=== PATIENT | female | born 1940 | race Caucasian/White ===

== ENCOUNTER 2023-01-23 12:24 | Inpatient (IN) ==
[2023-01-23 15:01] VITALS: BMI 17.2
[2023-01-23] MEDS ORDERED: HEPARIN SODIUM INJ 5000 UNITS IVP ONE ×2 (15:20→22:19)
[2023-01-23 15:21] LABS: BASOPHILS # (AUTO) 0.1 X10^3/uL (0.0-0.1); EOSINOPHILS # (AUTO) 0.1 x10^3/uL (0.0-0.2); EOSINOPHILS % (AUTO) 1.1 % (0.9-2.9); HEMATOCRIT 36.8 % (36.0-47.0); HEMOGLOBIN 12.4 g/dL (12.0-16.0); LYMPHOCYTES # (AUTO) 1.7 X10^3/uL (1.3-2.9); LYMPHOCYTES % (AUTO) 24.7 % (21.0-51.0); MEAN CORPUSCULAR HEMOGLOBIN 31.3 pg (27.0-34.0); MEAN CORPUSCULAR HGB CONC 33.6 g/dL (33.0-35.0); MEAN CORPUSCULAR VOLUME 93.2 fL (80.0-100.0); MEAN PLATELET VOLUME 9.3 fL (7.4-11.0); MONOCYTES # (AUTO) 0.7 x10^3/uL (0.3-0.8); MONOCYTES % (AUTO) 11.1 % (0.0-13.0); NEUTROPHILS # (AUTO) 4.2 x10^3/uL (2.2-4.8); NEUTROPHILS % (AUTO) 62.1 % (42.0-75.0); PLATELET COUNT 203 X10^3/uL (150.0-450.0); RED BLOOD COUNT 3.95 X10^6/uL (3.5-5.4); RED CELL DISTRIBUTION WIDTH 13.3 % (11.6-16.5); WHITE BLOOD COUNT 6.7 X10^3/uL (3.6-10.0)
[2023-01-23] MEDS ORDERED: HEPARIN SODIUM INJ 5000 UNITS ONE (15:22)
[2023-01-23 15:30] LABS: ALANINE AMINOTRANSFERASE 9 Units/L (12-78); ALBUMIN 3.4 g/dL (3.4-5.0); ALKALINE PHOSPHATASE 50 Units/L (46-116); ASPARTATE AMINO TRANSFERASE 16 Units/L (15-37); BLOOD UREA NITROGEN 14 mg/dL (7-18); CALCIUM 8.5 mg/dL (8.5-10.1); CARBON DIOXIDE 27.3 mmol/L (21-32); CHLORIDE 103 mmol/L (98-107); CREATININE 0.78 mg/dL (0.55-1.02); GLUCOSE 78 mg/dL (65-99); SODIUM 136 mmol/L (136-145); TOTAL PROTEIN 6.9 g/dL (6.4-8.2); eGFR NON BLACK RACES > 60 (>60)
[2023-01-23] MEDS ORDERED: OMNIPAQUE 350 mg/mL 100 mL BTL 100 ML ONE (15:37)
[2023-01-23] MEDS ORDERED: OMNIPAQUE 350 mg/mL 50 mL BTL 50 ML ONE (15:37)
[2023-01-23] MEDS ORDERED: NS 100 ML IV 100 ML ONE (15:37)
[2023-01-23] MEDS: LR 1,000 ML IV 1,000 ML IV SCH (15:42)
[2023-01-23] MEDS: HEPARIN SODIUM IN D5W 25,000 UNITS/500 ML BAG IV PRN (15:43)
[2023-01-23] MEDS ORDERED: HIBICLENS WASH EXT ONE (20:17)
--- NOTE | 2023-01-23 20:39 | CT ---
EXAM: CTA AORTA, AND BILATERAL LOWER EXTREMITIES WITH INTRAVENOUS CONTRASTHISTORY: Critical ischemia in both legs.TECHNIQUE: Spiral axial CT images are obtained through the distal abdomen, pelvis and bilateral lower extremities with the administration of intravenous contrast. Three-dimensional coronal, sagittal, and oblique images are reformatted.DOSIMETRY: Total DLP 713.31 mGycm; CTDI 24.68 mGyCOMPARISON: None available.FINDINGS:CT ABDOMEN AND PELVIS: The liver, spleen, pancreas, gallbladder, kidneys, adrenal glands, aorta, and IVC are within normal limits. There is no free fluid, free air, herniation, mass lesion, or lymphadenopathy seen. No bony fracture deformities are seen. Abundant fecal material is seen within the large bowel loops; nonspecific finding; rule out constipation. There is no evidence for bowel herniation, bowel obstruction, appendicitis, colitis, or diverticulitis. Mildly thickened and trabeculated appearance of the urinary bladder wall which may represent sequela of incomplete bladder distention and/or neurogenic bladder and/or cystitis in the appropriate clinical setting. Clinical correlation is advised.CTA ABDOMEN AND PELVIS: There is severe aortoiliac atherosclerosis marked by calcified mural plaques throughout, and estimated mild (less than 50%) segmental luminal stenoses throughout. No evidence for aortic aneurysm, dissection, or rupture is seen. There is severe atherosclerotic disease of the celiac axis, SMA, and bilateral renal artery origins, marked by calcified mural plaques. Suggestion of approximately 50 to 69% (potentially hemodynamically significant) luminal stenoses involving the proximal SMA and left renal artery origin. 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 Correlation with MRA may be beneficial for detection of occult patency or blood flow within the distal peripheral right lower extremity arteries.There is severe atherosclerotic disease of the left popliteal artery with segmental calcified mural plaques and luminal narrowings (estimated 50% or less). There is potentially hemodynamically significant luminal stenoses at the left popliteal trifurcation, with arterial perfusion/contrast-enhancement seen throughout the left trifurcation runoff vessels to the ankle and foot.IMPRESSION:1. Severe aortoiliac atherosclerosis marked by calcified mural plaques throughout, and estimated mild (less than 50%) segmental luminal stenoses throughout. No evidence for aortic aneurysm, dissection, or rupture is seen.2. Severe atherosclerotic disease of the celiac axis, SMA, and bilateral renal artery origins, marked by calcified mural plaques.3. Suggestion of approximately 50 to 69% (potentially hemodynamically significant) luminal stenoses involving the proximal SMA and left renal artery origin.4. Severe atherosclerotic disease of the LABOR[employer], PFA, and SFA marked by segmental calcified mural plaques and mild (less than 50%), presumably nonhemodynamically significant, segmental luminal stenoses.5. Complete occlusion/thrombosis of the right popliteal artery, from its origin with absence of detectable blood flow/vascular contrast-enhancement within the severely diseased/calcified, trifurcation runoff vessels. Correlation with MRA may be beneficial for detection of occult patency or blood flow within the distal peripheral right lower extremity arteries.6. Severe atherosclerotic disease of the left popliteal artery with segmental calcified mural plaques and luminal narrowings (estimated 50% or less).7. Potentially hemodynamically significant luminal stenoses at the left popliteal trifurcation, with arterial perfusion/contrast-enhancement seen throughout the left trifurcation runoff vessels to the ankle and foot.8. Abundant fecal material is seen within the large bowel loops; nonspecific finding; rule out constipation.9. Mildly thickened and trabeculated appearance of the urinary bladder wall which may represent sequela of incomplete bladder distention and/or neurogenic bladder and/or cystitis in the appropriate clinical setting. Clinical correlation is advised.THIS IS AN ELECTRONICALLY VERIFIED FINAL [id number]/23/2023 8:36 PM - Electronically signed by Silke Lynn
[2023-01-23] MEDS ORDERED: FLONASE NASAL SPRAY ENOSTRIL PRN (23:01)
[2023-01-23] MEDS ORDERED: NORCO 5/325 MG TAB PO PRN (23:01)
[2023-01-23] MEDS ORDERED: MEGACE PO PRN (23:01)
[2023-01-23] MEDS ORDERED: KENALOG TOP PRN (23:01)
[2023-01-23] MEDS ORDERED: DUONEB 0.5 MG/3 MG (3 mL) NEB PRN ×2 (23:01→23:36)
[2023-01-23] MEDS ORDERED: REFLEX: PROVENTIL NEB & PulmiCORT NEB~ NEB PRN (23:01)
[2023-01-24] MEDS ORDERED: ZESTRIL TAB 20 MG ONE ×2 (00:09→20:28)
[2023-01-24] MEDS: ZESTRIL TAB 20 MG PO SCH ×3 (00:11→20:42)
--- NOTE | 2023-01-24 00:14 | DR.H&P ---
H&P History & Physical for Day of: H&P Date: 01/23/23 Chief Complaint Chief Complaint: Rest pain both legs Allergies Allergies Allergy/AdvReac Type Severity Reaction Status Date / Time ciprofloxacin [From Cipro] Allergy HIVES Verified 07/07/19 03:10 citalopram [From Celexa] Allergy BONE PAIN Verified 07/07/19 03:10 nitrofurantoin Allergy NAUSEA/VOMI Verified 07/07/19 03:10 [From Macrobid] TING/JITTER Y Penicillins Allergy Verified 06/18/19 01:32 tramadol Allergy NAUSEA/VOMI Verified 07/07/19 03:10 TING History of Present Illness History of Present Illness: 82 year old female with several months history of rest pain of both lower extremities. She was evaluated by her supply controller, Dr Rubio, who obtained ankle brachial indices of 0.5 both legs She complains of the right leg hurting the worst. She has hypertension, is not diabetic, is not a smoker, and gives a history of heart disease, no chest pain of shortness of breath. Past Medical History Past Medical History: COPD, Coronary Artery Disease, Depression, Dyslipidemia and Hypertension Past Surgical History Surgical History: CABG/Valve Surgery and Hysterectomy Family History Family Medical History: Cancer and ND Social History Does patient currently use any type of tobacco product: No Have you used tobacco products in the last 12 months: No Alcohol Use: None Drug Use: None Medications Home Medications: Home Medications Medication Instructions Recorded Confirmed Type acetaminophen 300 mg-codeine 30 mg 1 tab PO Q6H PRN 01/28/21 01/28/21 History tablet amlodipine 10 mg tablet 10 mg PO ONCE 01/28/21 01/23/23 History aspirin 81 mg tablet,delayed 81 PO DAILY 01/28/21 History release budesonide-formoterol HFA 160 2 puff inhalation BID PRN 01/28/21 01/23/23 History mcg-4.5 mcg/actuation aerosol inhaler (Symbicort) cholecalciferol (vitamin D3) 10 10 mcg PO ONCE 01/28/21 01/23/23 History mcg (400 unit) tablet (Vitamin D3) conjugated estrogens 0.625 mg 0.625 mg PO DAILY 01/28/21 01/23/23 History tablet (Premarin) cyclobenzaprine 10 mg tablet 10 mg PO TID PRN 01/28/21 01/23/23 History hydrocodone 10 mg-acetaminophen 1 tab PO Q6HR PRN Pain 01/28/21 01/23/23 History 325 mg tablet ipratropium 0.5 mg-albuterol 3 mg 3 ml inhalation QID PRN 01/28/21 01/23/23 History (2.5 mg base)/3 mL nebulization soln lisinopril 20 mg tablet 20 mg PO BID 01/28/21 01/23/23 History simvastatin 20 mg tablet 20 mg PO QHS 01/28/21 01/23/23 History tiotropium bromide 2.5 2 puff inhalation QAM 01/28/21 01/23/23 History mcg/actuation mist for inhalation (Spiriva Respimat) triamcinolone acetonide 0.1 % 1 applic topical BID PRN 01/28/21 01/23/23 History topical ointment vitamin E 268 mg (400 unit) capsule 400 unit PO DAILY 01/28/21 01/23/23 History fluticasone propionate 50 50 mcg intranasal 01/23/23 History mcg/actuation nasal spray,suspension megestrol 400 mg/10 mL (40 mg/mL) 40 mg PO DAILY 01/23/23 01/23/23 History oral suspension Labs 01/23/23 14:46 01/23/23 14:46 Labs: Laboratory WBC 6.7 X10^3/uL (3.6-10.0) 01/23/23 14:46 RBC 3.95 X10^6/uL (3.5-5.4) 01/23/23 14:46 Hgb 12.4 g/dL (12.0-16.0) 01/23/23 14:46 Hct 36.8 % (36.0-47.0) 01/23/23 14:46 MCV 93.2 fL (80.0-100.0) 01/23/23 14:46 MCH 31.3 pg (27.0-34.0) 01/23/23 14:46 MCHC 33.6 g/dL (33.0-35.0) 01/23/23 14:46 RDW 13.3 % (11.6-16.5) 01/23/23 14:46 Plt Count 203 X10^3/uL (150.0-450.0) 01/23/23 14:46 MPV 9.3 fL (7.4-11.0) 01/23/23 14:46 Neut % (Auto) 62.1 % (42.0-75.0) 01/23/23 14:46 Lymph % (Auto) 24.7 % (21.0-51.0) 01/23/23 14:46 Caroline % (Auto) 11.1 % (0.0-13.0) 01/23/23 14:46 Eos % (Auto) 1.1 % (0.9-2.9) 01/23/23 14:46 Baso % (Auto) 1.0 % (0.2-1.0) 01/23/23 14:46 Neut # (Auto) 4.2 x10^3/uL (2.2-4.8) 01/23/23 14:46 Lymph # (Auto) 1.7 X10^3/uL (1.3-2.9) 01/23/23 14:46 Caroline # (Auto) 0.7 x10^3/uL (0.3-0.8) 01/23/23 14:46 Eos # (Auto) 0.1 x10^3/uL (0.0-0.2) 01/23/23 14:46 Baso # (Auto) 0.1 X10^3/uL (0.0-0.1) 01/23/23 14:46 Absolute Nucleated RBC 0.1 /100WBC 01/23/23 14:46 PT 13.0 SECONDS (11.8-14.3) 01/23/23 14:46 INR Target Range - 01/23/23 14:46 INR 1.00 (0.8-1.3) 01/23/23 14:46 APTT 57.8 SECONDS (22.9-36.5) H 01/23/23 21:45 PTT Comment - 01/23/23 21:45 Sodium 136 mmol/L (136-145) 01/23/23 14:46 Corrected Sodium TNP 01/23/23 14:46 Potassium 4.0 mmol/L (3.5-5.1) 01/23/23 14:46 Chloride 103 mmol/L (98-107) 01/23/23 14:46 Carbon Dioxide 27.3 mmol/L (21-32) 01/23/23 14:46 BUN 14 mg/dL (7-18) 01/23/23 14:46 Creatinine 0.78 mg/dL (0.55-1.02) 01/23/23 14:46 Est GFR (MDRD) Af Amer > 60 (>60) 01/23/23 14:46 Est GFR (MDRD) Non-Af > 60 (>60) 01/23/23 14:46 Glucose 78 mg/dL (65-99) 01/23/23 14:46 Calcium 8.5 mg/dL (8.5-10.1) 01/23/23 14:46 Corrected Calcium TNP 01/23/23 14:46 Total Bilirubin 0.40 mg/dL (0.2-1.0) 01/23/23 14:46 AST 16 Units/L (15-37) 01/23/23 14:46 ALT 9 Units/L (12-78) L 01/23/23 14:46 Alkaline Phosphatase 50 Units/L (46-116) 01/23/23 14:46 Total Protein 6.9 g/dL (6.4-8.2) 01/23/23 14:46 Albumin 3.4 g/dL (3.4-5.0) 01/23/23 14:46 Globulin 3.5 g/dL (2.5-4.5) 01/23/23 14:46 Albumin/Globulin Ratio 1.0 Ratio (1.1-2.1) L 01/23/23 14:46 CTA diffuse atherosclerotic disease of the aorta and its branches, completely occluded right popliteal artery, severe disease of right trifurcation vessels, severe disease left popliteal artery with significant left trifurcations arteries as well. Review of Systems Constitutional: See HPI and Other (thin) Eyes: No Symptoms Reported ENT: No Symptoms Reported Respiratory: Wheezing Cardiovascular: No Symptoms Reported Gastrointestinal: No Symptoms Reported Genitourinary: No Symptoms Reported Musculoskeletal: No Symptoms Reported Skin: No Symptoms Reported Neurological: No Symptoms Reported Physical Exam Vital Signs: Vital Signs Temperature 97.6 F Pulse Rate 57 Pulse Rate 57 Pulse Rate 56 Pulse Rate 66 Pulse Rate 58 Pulse Rate 61 Pulse Rate 64 Pulse Rate 57 Pulse Rate 44 Pulse Rate 58 Pulse Rate 63 Pulse Rate 62 Pulse Rate 54 Pulse Rate 49 Pulse Rate 58 Pulse Rate 62 Pulse Rate 63 Pulse Rate 58 Pulse Rate 58 Pulse Rate 45 Pulse Rate 59 Pulse Rate 49 Pulse Rate 44 Pulse Rate 57 Pulse Rate 51 Pulse Rate 61 Pulse Rate 68 Pulse Rate 60 Pulse Rate 56 Pulse Rate 59 Pulse Rate 68 Pulse Rate 69 Pulse Rate 57 Pulse Rate 59 Pulse Rate 68 Pulse Rate 72 Respiratory Rate 27 Respiratory Rate 28 Respiratory Rate 29 Respiratory Rate 37 Respiratory Rate 21 Respiratory Rate 19 Respiratory Rate 23 Respiratory Rate 27 Respiratory Rate 19 Respiratory Rate 19 Respiratory Rate 16 Respiratory Rate 20 Respiratory Rate 17 Respiratory Rate 17 Respiratory Rate 38 Respiratory Rate 24 Respiratory Rate 25 Respiratory Rate 24 Respiratory Rate 28 Respiratory Rate 16 Respiratory Rate 14 Respiratory Rate 30 Respiratory Rate 21 Respiratory Rate 26 Respiratory Rate 27 Respiratory Rate 20 Respiratory Rate 17 Respiratory Rate 20 Respiratory Rate 27 Respiratory Rate 27 Respiratory Rate 19 Respiratory Rate 25 Respiratory Rate 17 Respiratory Rate 14 Respiratory Rate 24 Respiratory Rate 41 Blood Pressure 180/73 Blood Pressure 171/82 Blood Pressure 193/87 Blood Pressure 200/102 Blood Pressure 213/87 Blood Pressure 180/86 Blood Pressure 218/91 Blood Pressure 181/75 Blood Pressure 139/94 O2 Sat by Pulse Oximetry 97 O2 Sat by Pulse Oximetry 98 O2 Sat by Pulse Oximetry 97 O2 Sat by Pulse Oximetry 95 O2 Sat by Pulse Oximetry 99 O2 Sat by Pulse Oximetry 99 O2 Sat by Pulse Oximetry 99 O2 Sat by Pulse Oximetry 100 O2 Sat by Pulse Oximetry 98 O2 Sat by Pulse Oximetry 99 O2 Sat by Pulse Oximetry 98 O2 Sat by Pulse Oximetry 97 O2 Sat by Pulse Oximetry 97 O2 Sat by Pulse Oximetry 96 O2 Sat by Pulse Oximetry 98 O2 Sat by Pulse Oximetry 99 O2 Sat by Pulse Oximetry 97 O2 Sat by Pulse Oximetry 98 O2 Sat by Pulse Oximetry 97 O2 Sat by Pulse Oximetry 98 O2 Sat by Pulse Oximetry 98 O2 Sat by Pulse Oximetry 97 O2 Sat by Pulse Oximetry 98 O2 Sat by Pulse Oximetry 98 O2 Sat by Pulse Oximetry 100 O2 Sat by Pulse Oximetry 97 O2 Sat by Pulse Oximetry 99 O2 Sat by Pulse Oximetry 98 O2 Sat by Pulse Oximetry 100 O2 Sat by Pulse Oximetry 97 O2 Sat by Pulse Oximetry 97 O2 Sat by Pulse Oximetry 100 O2 Sat by Pulse Oximetry 100 O2 Sat by Pulse Oximetry 95 Oriented: Normal, Time, Person and Place Eyes: Normal Ear: Normal Nose: Normal Throat: Normal Respiratory: Clear Throughout Cardiovascular: Normal and Other (palpable femoral pulses bilaterally. All pulses at both ankles are absent. 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 Will plan arterial intervention of the right leg. (2) Atherosclerosis of [place] arteries of extremities with rest pain, left leg: Status: Acute Plan: As above. After the right leg is dealt with the left leg can probably be dealt with as an outpatient later. (3) Chronic ischemic heart disease, unspecified: Status: Acute Plan: Continue usual home medications (4) Chronic obstructive pulmonary disease, unspecified: Status: Acute Plan: continue usual medications (5) Dyslipidemia: Status: Acute Plan: continue usual home medicatiosn Review H&P Reviewed: Yes Patient was examined?: Yes
[2023-01-24] MEDS: NORVASC TAB 10 MG PO SCH ×2 (00:18→09:00)
[2023-01-24] MEDS ORDERED: CATAPRES TAB 0.2 MG PO ONE (02:41)
[2023-01-24] MEDS: LR 1,000 ML IV 1,000 ML IV SCH ×2 (03:46→20:42)
[2023-01-24 05:02] LABS: BASOPHILS # (AUTO) 0.1 X10^3/uL (0.0-0.1); BASOPHILS % (AUTO) 1.8 % (0.2-1.0); EOSINOPHILS # (AUTO) 0.2 x10^3/uL (0.0-0.2); EOSINOPHILS % (AUTO) 3.4 % (0.9-2.9); HEMATOCRIT 34.5 % (36.0-47.0); HEMOGLOBIN 11.5 g/dL (12.0-16.0); LYMPHOCYTES # (AUTO) 1.8 X10^3/uL (1.3-2.9); LYMPHOCYTES % (AUTO) 34.1 % (21.0-51.0); MEAN CORPUSCULAR HEMOGLOBIN 31.1 pg (27.0-34.0); MEAN CORPUSCULAR HGB CONC 33.4 g/dL (33.0-35.0); MEAN CORPUSCULAR VOLUME 93.3 fL (80.0-100.0); MEAN PLATELET VOLUME 9.2 fL (7.4-11.0); MONOCYTES # (AUTO) 0.7 x10^3/uL (0.3-0.8); MONOCYTES % (AUTO) 12.9 % (0.0-13.0); NEUTROPHILS # (AUTO) 2.5 x10^3/uL (2.2-4.8); NEUTROPHILS % (AUTO) 47.8 % (42.0-75.0); PLATELET COUNT 188 X10^3/uL (150.0-450.0); RED CELL DISTRIBUTION WIDTH 13.4 % (11.6-16.5); WHITE BLOOD COUNT 5.3 X10^3/uL (3.6-10.0)
[2023-01-24 05:17] LABS: ALANINE AMINOTRANSFERASE 8 Units/L (12-78); ALBUMIN 2.8 g/dL (3.4-5.0); ALKALINE PHOSPHATASE 43 Units/L (46-116); ASPARTATE AMINO TRANSFERASE 16 Units/L (15-37); BLOOD UREA NITROGEN 12 mg/dL (7-18); CARBON DIOXIDE 29.5 mmol/L (21-32); CHLORIDE 104 mmol/L (98-107); CREATININE 0.82 mg/dL (0.55-1.02); GLUCOSE 87 mg/dL (65-99); POTASSIUM 3.5 mmol/L (3.5-5.1); SODIUM 138 mmol/L (136-145); TOTAL PROTEIN 5.8 g/dL (6.4-8.2); eGFR NON BLACK RACES > 60 (>60)
[2023-01-24] MEDS ORDERED: HEPARIN SODIUM INJ 5000 UNITS IVP ONE (05:28)
[2023-01-24] MEDS ORDERED: CONSULT PHARMACY - POTASSIUM & MAGNESIUM XX SCH (06:00)
[2023-01-24] MEDS ORDERED: APRESOLINE INJ 20 MG VIAL IVP ONE (06:16)
[2023-01-24] MEDS ORDERED: APRESOLINE INJ 20 MG VIAL ONE (06:20)
--- NOTE | 2023-01-24 06:34 | EKG ---
Test Reason : HYPERTENSION PROTOCOL Blood Pressure : */* mmHG Vent. Rate : 47 BPM Atrial Rate : 47 BPM P-R Int : 182 ms QRS Dur : 74 ms QT Int : 554 ms P-R-T Axes : 84 30 96 degrees QTc Int : 490 ms Sinus bradycardia Nonspecific ST abnormality Abnormal QRS-T angle, consider primary T wave abnormality Prolonged QT Abnormal ECG No previous ECGs available Confirmed by Fernando Mathis MD ([id number]) on 01/24/2023 7:40:53 AM Referred By: Confirmed By: Fernando Mathis MD
[2023-01-24] MEDS: FLEXERIL TAB 10 MG PO SCH (08:59)
[2023-01-24] MEDS: ASPIRIN EC 81 MG PO SCH (08:59)
[2023-01-24] MEDS ORDERED: NORVASC TAB 10 MG PO SCH (09:00)
[2023-01-24] MEDS ORDERED: ZESTRIL TAB 10 MG PO SCH (09:00)
[2023-01-24] MEDS ORDERED: K-DUR TAB 20 MEQ PO SCH (09:00)
--- NOTE | 2023-01-24 16:14 | NOTE.SOAP ---
Soap Note Note for Day of Date of Exam: 01/24/23 Subjective Data Subjective Data: Patient stable on heparin drip. Rest pain both legs stable. CTA shows diffuse atherosclerotic disease with complete occlusion of the right SFA and severe disease left SFA. Objective Data Pulse Rate: 50 Respiratory Rate: 26 Blood Pressure: 157/70 O2 Sat by Pulse Oximetry: 97 Assessment Assessment: Critical ischemia both legs, right worse than left Plan Plan: continue Heparin drip. Will plan aortogram and arteriogram of the right leg with possible stenting of the right superficial femoral artery.
[2023-01-24] MEDS ORDERED: HIBICLENS WASH ONE (19:50)
[2023-01-24] MEDS: ZOCOR TAB 20 MG PO SCH (21:43)
[2023-01-25] MEDS: HEPARIN SODIUM IN D5W 25,000 UNITS/500 ML BAG IV PRN (01:00)
[2023-01-25 02:22] LABS: BASOPHILS # (AUTO) 0.1 X10^3/uL (0.0-0.1); BASOPHILS % (AUTO) 2.2 % (0.2-1.0); EOSINOPHILS # (AUTO) 0.2 x10^3/uL (0.0-0.2); EOSINOPHILS % (AUTO) 3.3 % (0.9-2.9); HEMATOCRIT 33.4 % (36.0-47.0); HEMOGLOBIN 11.2 g/dL (12.0-16.0); LYMPHOCYTES % (AUTO) 35.3 % (21.0-51.0); MEAN CORPUSCULAR HEMOGLOBIN 31.3 pg (27.0-34.0); MEAN CORPUSCULAR HGB CONC 33.5 g/dL (33.0-35.0); MEAN CORPUSCULAR VOLUME 93.3 fL (80.0-100.0); MONOCYTES # (AUTO) 0.6 x10^3/uL (0.3-0.8); MONOCYTES % (AUTO) 10.8 % (0.0-13.0); NEUTROPHILS # (AUTO) 2.8 x10^3/uL (2.2-4.8); NEUTROPHILS % (AUTO) 48.4 % (42.0-75.0); PLATELET COUNT 186 X10^3/uL (150.0-450.0); RED BLOOD COUNT 3.57 X10^6/uL (3.5-5.4); RED CELL DISTRIBUTION WIDTH 13.4 % (11.6-16.5); WHITE BLOOD COUNT 5.8 X10^3/uL (3.6-10.0)
[2023-01-25 02:33] LABS: ALANINE AMINOTRANSFERASE 7 Units/L (12-78); ALBUMIN 2.6 g/dL (3.4-5.0); ALKALINE PHOSPHATASE 40 Units/L (46-116); ASPARTATE AMINO TRANSFERASE 14 Units/L (15-37); BLOOD UREA NITROGEN 14 mg/dL (7-18); CALCIUM 7.9 mg/dL (8.5-10.1); CARBON DIOXIDE 29.2 mmol/L (21-32); CHLORIDE 106 mmol/L (98-107); CREATININE 0.84 mg/dL (0.55-1.02); GLUCOSE 81 mg/dL (65-99); MAGNESIUM 1.8 mg/dL (2.0-2.9); POTASSIUM 3.8 mmol/L (3.5-5.1); SODIUM 138 mmol/L (136-145); TOTAL PROTEIN 5.5 g/dL (6.4-8.2); eGFR NON BLACK RACES > 60 (>60)
[2023-01-25] MEDS ORDERED: CONSULT PHARMACY - POTASSIUM & MAGNESIUM XX SCH (06:00)
[2023-01-25] MEDS ORDERED: K-DUR TAB 20 MEQ PO SCH (06:00)
[2023-01-25] MEDS: MAG-OX TAB PO SCH ×2 (06:08→06:55)
[2023-01-25] MEDS: LR 1,000 ML IV 1,000 ML IV SCH ×2 (06:08→21:26)
[2023-01-25] MEDS ORDERED: ZESTRIL TAB 20 MG ONE ×2 (08:11→20:12)
[2023-01-25] MEDS: FLEXERIL TAB 10 MG PO SCH (08:40)
[2023-01-25] MEDS: ZESTRIL TAB 20 MG PO SCH ×2 (08:40→21:26)
[2023-01-25] MEDS: NORVASC TAB 10 MG PO SCH (08:40)
[2023-01-25] MEDS: ASPIRIN EC 81 MG PO SCH (08:41)
[2023-01-25] MEDS: PREMARIN PO SCH (15:16)
[2023-01-25] MEDS ORDERED: COLACE CAP 100 MG PO PRN (19:35)
[2023-01-25] MEDS: ZOCOR TAB 20 MG PO SCH (21:25)
--- NOTE | 2023-01-25 22:51 | NOTE.SOAP ---
Soap Note Note for Day of Date of Exam: 01/25/23 Subjective Data Subjective Data: Rest pain both legs stable. Remains on heparin drip . CTA shows complete occlusion of the right popliteal artery with no trifurcation reconstitution. Objective Data Pulse Rate: 56 Respiratory Rate: 24 Blood Pressure: 176/64 O2 Sat by Pulse Oximetry: 98 Objective Data: both feet cool to touch Assessment Assessment: critical ischemia both legs, worse on right Plan Plan: To OR tomorrow for right leg on table arteriogram and arterial intervention to include possible atherectomy, possible angioplasty and possible stenting . Risks and benefits discussed with the patient
[2023-01-26] MEDS: HEPARIN SODIUM IN D5W 25,000 UNITS/500 ML BAG IV PRN (06:16)
[2023-01-26] MEDS: PREMARIN PO SCH (09:44)
[2023-01-26] MEDS: ASPIRIN EC 81 MG PO SCH (09:45)
[2023-01-26] MEDS: ZESTRIL TAB 20 MG PO SCH (09:45)
[2023-01-26] MEDS: FLEXERIL TAB 10 MG PO SCH (09:45)
[2023-01-26] MEDS: NORVASC TAB 10 MG PO SCH (09:45)
--- NOTE | 2023-01-26 09:58 | RAD ---
EXAM:Portable AP chestHISTORY:Preop ischemic legCOMPARISON:NoneFINDINGS:Heart size normal with sternal wires and clear lungs. No definite pneumonia or pleural effusion. Biapical pleural calcification.IMPRESSION:No acute chest findings.THIS IS AN ELECTRONICALLY VERIFIED FINAL [id number]/26/2023 9:55 AM - Electronically signed by Theo Tomas MD
[2023-01-26] MEDS ORDERED: DIPRIVAN VIAL 20 ML ONE (11:50)
[2023-01-26] MEDS ORDERED: HEPARIN SODIUM INJ 5000 UNITS ONE ×2 (11:50→14:49)
[2023-01-26] MEDS ORDERED: ZOFRAN INJ 4 MG VIAL ONE (11:50)
[2023-01-26] MEDS ORDERED: PEPCID 20 MG VIAL ONE (11:50)
[2023-01-26] MEDS ORDERED: KETAMINE 50 MG/5 ML-NACL SYRNG ONE (12:30)
[2023-01-26] MEDS ORDERED: VERSED ONE (12:30)
[2023-01-26] MEDS ORDERED: FENTANYL VIAL INJ 100 mcg ONE (12:30)
[2023-01-26] MEDS ORDERED: ANCEF VIAL 1 GRAM ONE (12:51)
[2023-01-26] MEDS ORDERED: NS 100 ML IV 100 ML ONE (12:51)
[2023-01-26] MEDS ORDERED: LR 1,000 ML IV 1,000 ML IV ONE (12:51)
[2023-01-26] MEDS ORDERED: PRECEDEX INJ VIAL IVP ONE (13:23)
[2023-01-26] MEDS ORDERED: MARCAINE 0.5% ONE (13:32)
[2023-01-26] MEDS ORDERED: HEPARIN SODIUM IN D5W 75,000 UNITS/1,500 ML BAG ONE (13:32)
[2023-01-26] MEDS ORDERED: VISIPAQUE 100 ML ONE (13:37)
[2023-01-26] MEDS ORDERED: ROBINUL ONE (14:27)
[2023-01-26] MEDS ORDERED: PROTAMINE SULFATE 50 MG VIAL ONE (15:07)
[2023-01-26] MEDS ORDERED: XARELTO PO STA (15:08)
--- NOTE | 2023-01-26 15:30 | OR.IMMED ---
IMMEDIATE POST-OP NOTE Immediate Post-Op Note Date of surgery/procedure: 01/26/23 Pre-Op Diagnosis: critical ischemia right leg Post-Op Diagnosis: same Procedure: Diagnostic aortogram, diagnostic Arteriogram right leg , atherectomy an angioplasty of the right peroneal artery, atherectomy in drug-coated balloon angioplasty of the right popliteal artery and right tibial-peroneal trunk Description of Procedure: see dictation Surgeon/Stationary Engineer Supervisor: ty Findings: completely occluded popliteal artery and tibial peroneal trunk , completely occluded take off of the right anterior tibial artery . Completely occluded peroneal and director of health care marketing tibial arteries Estimated Blood Loss: <100 cc Complications: none Progress Notes: patient returned to the I see you. Will begin diet. Will discontinue continue Heparin drip. Give first dose of Xarelto now. Discharge either later today or in the morning. On follow-up will schedule for intervention of the left leg
[2023-01-26] MEDS ORDERED: XARELTO PO ONE (17:43)
[2023-01-26 17:58] VITALS: O2SAT 99
--- NOTE | 2023-01-26 18:07 | W.DIS.FURT ---
Summary of Discharge Discharge Summary of Date Date of Exam: 01/26/23 Admission Date Date of Admission: 01/23/23 Admission Diagnosis Hospital Course: This patient is an 83 year old female with history of coronary artery disease that is s/p coronary artery bypass grafting, hypertension and COPD who [facility] complaining of bilateral lower extremity rest pain and ankle brachial indices of 0.5 bilaterally. Patient complained of the right side hurting the most. Because of the severe rest pain she was admitted and placed on a Heparin drip. CT angiogram showed complete occlusion of the right popliteal artery with poor run off. Left side showed severe disease of the left superficial femoral artery and popliteal artery as well. She was treated with a Heparin drip and was taken to the operating Suite on January 26 where aortogram was normall. Proximal and distal superficial femoral artery was normal. She had a ooclusion of the right popliteal artery and tibial peroneal trunk with no apparent run off to the right foot. I was able to open up the peroneal artery and treated artery with atherectomy and balloon angioplasty and did atherectomy and drug-coated balloon angioplasty of the right tibial peroneal trunk and popliteal artety . She has done well and will be discharged home her usual home medications Plus Xarelto 2.5 mg BID. She already takes aspirin daily. I will see her in follow up in one week. At that time we will schedule intervention of the left leg arteries for significant ischemia and rest pain. Vital Signs: Vital Signs (72 hours) 01/24/23 16:13 01/25/23 22:51 01/23/23 18:07 Temperature Pulse Rate 50 L 56 L 68 Respiratory Rate 26 H 24 17 Blood Pressure 157/70 176/64 Blood Pressure [Left Arm] O2 Sat by Pulse Oximetry 97 98 97 Oxygen Delivery Method Oxygen Flow Rate FIO2% 01/23/23 18:15 01/23/23 19:12 01/23/23 18:30 Temperature 97.6 F Pulse Rate 61 51 L Respiratory Rate 20 27 H Blood Pressure 180/86 Blood Pressure [Left Arm] O2 Sat by Pulse Oximetry 100 98 Oxygen Delivery Method Oxygen Flow Rate FIO2% 01/23/23 18:45 01/23/23 19:00 01/23/23 19:01 Temperature Pulse Rate 57 L 44 L Respiratory Rate 26 H 21 Blood Pressure 181/75 Blood Pressure [Left Arm] O2 Sat by Pulse Oximetry 98 97 Oxygen Delivery Method Oxygen Flow Rate FIO2% 01/23/23 19:01 01/23/23 19:03 01/23/23 19:03 Temperature Pulse Rate 49 L 59 L Respiratory Rate 30 H 14 Blood Pressure 218/91 Blood Pressure [Left Arm] O2 Sat by Pulse Oximetry 98 98 Oxygen Delivery Method Oxygen Flow Rate FIO2% 01/23/23 19:00 01/23/23 19:15 01/23/23 19:30 Temperature Pulse Rate 45 L 58 L Respiratory Rate 16 28 H Blood Pressure Blood Pressure [Left Arm] O2 Sat by Pulse Oximetry 97 98 Oxygen Delivery Method Room Air Oxygen Flow Rate FIO2% 01/23/23 19:34 01/23/23 19:34 01/23/23 19:45 Temperature Pulse Rate 58 L 63 Respiratory Rate 24 25 H Blood Pressure 213/87 Blood Pressure [Left Arm] O2 Sat by Pulse Oximetry 97 99 Oxygen Delivery Method Oxygen Flow Rate FIO2% 01/23/23 20:00 01/23/23 20:04 01/23/23 20:04 Temperature Pulse Rate 62 58 L Respiratory Rate 24 38 H Blood Pressure 200/102 Blood Pressure [Left Arm] O2 Sat by Pulse Oximetry 98 96 Oxygen Delivery Method Oxygen Flow Rate FIO2% 01/23/23 20:15 01/23/23 20:30 01/23/23 20:45 Temperature Pulse Rate 49 L 54 L 62 Respiratory Rate 17 17 20 Blood Pressure Blood Pressure [Left Arm] O2 Sat by Pulse Oximetry 97 97 98 Oxygen Delivery Method Oxygen Flow Rate FIO2% 01/23/23 21:11 01/23/23 21:15 01/23/23 21:15 Temperature Pulse Rate 63 58 L Respiratory Rate 16 19 Blood Pressure 193/87 Blood Pressure [Left Arm] O2 Sat by Pulse Oximetry 99 Oxygen Delivery Method Oxygen Flow Rate FIO2% 01/23/23 21:30 01/23/23 21:45 01/23/23 22:00 Temperature Pulse Rate 44 L 57 L 64 Respiratory Rate 19 27 H 23 Blood Pressure Blood Pressure [Left Arm] O2 Sat by Pulse Oximetry 98 100 99 Oxygen Delivery Method Oxygen Flow Rate FIO2% 01/23/23 22:01 01/23/23 22:01 01/23/23 22:15 Temperature Pulse Rate 61 58 L Respiratory Rate 19 21 Blood Pressure 171/82 Blood Pressure [Left Arm] O2 Sat by Pulse Oximetry 99 99 Oxygen Delivery Method Oxygen Flow Rate FIO2% 01/23/23 22:30 01/23/23 22:45 01/23/23 23:00 Temperature Pulse Rate 66 56 L 57 L Respiratory Rate 37 H 29 H 28 H Blood Pressure Blood Pressure [Left Arm] O2 Sat by Pulse Oximetry 95 97 98 Oxygen Delivery Method Oxygen Flow Rate FIO2% 01/23/23 23:01 01/23/23 23:01 01/23/23 23:15 Temperature Pulse Rate 57 L 56 L Respiratory Rate 27 H 29 H Blood Pressure 180/73 Blood Pressure [Left Arm] O2 Sat by Pulse Oximetry 97 96 Oxygen Delivery Method Oxygen Flow Rate FIO2% 01/23/23 23:30 01/23/23 23:45 01/24/23 00:00 Temperature Pulse Rate 52 L 47 L Respiratory Rate 24 17 Blood Pressure 194/81 Blood Pressure [Left Arm] O2 Sat by Pulse Oximetry 97 95 Oxygen Delivery Method Oxygen Flow Rate FIO2% 01/24/23 00:00 01/24/23 00:15 01/24/23 00:30 Temperature 97.8 F Pulse Rate 51 L 45 L 57 L Respiratory Rate 22 18 14 Blood Pressure Blood Pressure [Left Arm] O2 Sat by Pulse Oximetry 95 97 96 Oxygen Delivery Method Oxygen Flow Rate FIO2% 01/24/23 00:45 01/24/23 01:00 01/24/23 01:01 Temperature Pulse Rate 48 L 50 L Respiratory Rate 14 15 Blood Pressure 181/74 Blood Pressure [Left Arm] O2 Sat by Pulse Oximetry 96 96 Oxygen Delivery Method Oxygen Flow Rate FIO2% 01/24/23 01:01 01/24/23 01:15 01/24/23 01:30 Temperature Pulse Rate 56 L 45 L 52 L Respiratory Rate 15 14 16 Blood Pressure Blood Pressure [Left Arm] O2 Sat by Pulse Oximetry 97 97 97 Oxygen Delivery Method Oxygen Flow Rate FIO2% 01/24/23 01:45 01/24/23 02:00 01/24/23 02:00 Temperature Pulse Rate 57 L 55 L Respiratory Rate 16 14 Blood Pressure 182/78 Blood Pressure [Left Arm] O2 Sat by Pulse Oximetry 96 95 Oxygen Delivery Method Oxygen Flow Rate FIO2% 01/24/23 02:15 01/24/23 02:30 01/24/23 02:34 Temperature Pulse Rate 58 L 56 L Respiratory Rate 16 16 Blood Pressure 200/82 Blood Pressure [Left Arm] O2 Sat by Pulse Oximetry 97 96 Oxygen Delivery Method Oxygen Flow Rate FIO2% 01/24/23 02:34 01/24/23 02:48 01/24/23 03:00 Temperature Pulse Rate 55 L 59 L 56 L Respiratory Rate 15 29 H 18 Blood Pressure Blood Pressure [Left Arm] O2 Sat by Pulse Oximetry 95 95 94 L Oxygen Delivery Method Oxygen Flow Rate FIO2% 01/24/23 03:01 01/24/23 03:01 01/24/23 03:15 Temperature Pulse Rate 56 L 57 L Respiratory Rate 27 H 16 Blood Pressure 202/83 Blood Pressure [Left Arm] O2 Sat by Pulse Oximetry 96 96 Oxygen Delivery Method Oxygen Flow Rate FIO2% 01/24/23 04:00 01/24/23 05:00 01/24/23 05:31 Temperature 97.8 F Pulse Rate 57 L 38 L Respiratory Rate 15 14 Blood Pressure 180/77 149/65 Blood Pressure [Left Arm] O2 Sat by Pulse Oximetry 97 96 Oxygen Delivery Method Room Air Room Air Nasal Cannula Oxygen Flow Rate 2 FIO2% 28 01/24/23 06:00 01/24/23 06:21 01/24/23 06:26 Temperature Pulse Rate 48 L Respiratory Rate 14 Blood Pressure 190/77 186/90 Blood Pressure [Left Arm] 125/60 O2 Sat by Pulse Oximetry 99 Oxygen Delivery Method Nasal Cannula Oxygen Flow Rate 2 FIO2% 01/24/23 06:46 01/24/23 03:30 01/24/23 03:45 Temperature Pulse Rate 54 L 53 L Respiratory Rate 16 16 Blood Pressure Blood Pressure [Left Arm] 100/50 O2 Sat by Pulse Oximetry 96 96 Oxygen Delivery Method Oxygen Flow Rate FIO2% 01/24/23 04:00 01/24/23 04:03 01/24/23 04:03 Temperature Pulse Rate 59 L 54 L Respiratory Rate 16 19 Blood Pressure 180/77 Blood Pressure [Left Arm] O2 Sat by Pulse Oximetry 96 96 Oxygen Delivery Method Oxygen Flow Rate FIO2% 01/24/23 04:15 01/24/23 04:30 01/24/23 04:45 Temperature Pulse Rate 46 L 50 L 41 L Respiratory Rate 15 14 16 Blood Pressure Blood Pressure [Left Arm] O2 Sat by Pulse Oximetry 97 97 97 Oxygen Delivery Method Oxygen Flow Rate FIO2% 01/24/23 05:00 01/24/23 05:01 01/24/23 05:01 Temperature Pulse Rate 48 L 38 L Respiratory Rate 14 14 Blood Pressure 149/65 Blood Pressure [Left Arm] O2 Sat by Pulse Oximetry 96 96 Oxygen Delivery Method Oxygen Flow Rate FIO2% 01/24/23 05:15 01/24/23 05:30 01/24/23 05:45 Temperature Pulse Rate 38 L 43 L 51 L Respiratory Rate 15 14 17 Blood Pressure Blood Pressure [Left Arm] O2 Sat by Pulse Oximetry 96 100 100 Oxygen Delivery Method Oxygen Flow Rate FIO2% 01/24/23 06:00 01/24/23 06:01 01/24/23 06:01 Temperature Pulse Rate 54 L 52 L Respiratory Rate 22 17 Blood Pressure 190/77 Blood Pressure [Left Arm] O2 Sat by Pulse Oximetry 99 98 Oxygen Delivery Method Oxygen Flow Rate FIO2% 01/24/23 06:15 01/24/23 06:30 01/24/23 06:31 Temperature Pulse Rate 37 L 40 L Respiratory Rate 15 18 Blood Pressure 100/46 Blood Pressure [Left Arm] O2 Sat by Pulse Oximetry 100 100 Oxygen Delivery Method Oxygen Flow Rate FIO2% 01/24/23 06:31 01/24/23 06:32 01/24/23 06:32 Temperature Pulse Rate 40 L 42 L Respiratory Rate 18 18 Blood Pressure 87/44 Blood Pressure [Left Arm] O2 Sat by Pulse Oximetry 99 99 Oxygen Delivery Method Oxygen Flow Rate FIO2% 01/24/23 06:40 01/24/23 06:42 01/24/23 06:45 Temperature Pulse Rate 51 L 54 L 57 L Respiratory Rate 17 22 21 Blood Pressure Blood Pressure [Left Arm] O2 Sat by Pulse Oximetry 100 100 99 Oxygen Delivery Method Oxygen Flow Rate FIO2% 01/24/23 06:46 01/24/23 07:00 01/24/23 07:04 Temperature Pulse Rate 58 L 59 L 54 L Respiratory Rate 20 23 22 Blood Pressure Blood Pressure [Left Arm] O2 Sat by Pulse Oximetry 99 99 99 Oxygen Delivery Method Oxygen Flow Rate FIO2% 01/24/23 07:05 01/24/23 07:05 01/24/23 07:15 Temperature Pulse Rate 58 L 49 L Respiratory Rate 25 H 20 Blood Pressure 97/48 Blood Pressure [Left Arm] O2 Sat by Pulse Oximetry 99 99 Oxygen Delivery Method Oxygen Flow Rate FIO2% 01/24/23 07:00 01/24/23 07:30 01/24/23 07:30 Temperature Pulse Rate 63 Respiratory Rate 15 Blood Pressure 82/46 Blood Pressure [Left Arm] O2 Sat by Pulse Oximetry 97 Oxygen Delivery Method Nasal Cannula Oxygen Flow Rate 2 FIO2% 01/24/23 07:45 01/24/23 08:00 01/24/23 08:00 Temperature Pulse Rate 46 L 54 L Respiratory Rate 27 H 18 Blood Pressure 83/48 Blood Pressure [Left Arm] O2 Sat by Pulse Oximetry 97 97 Oxygen Delivery Method Oxygen Flow Rate FIO2% 01/24/23 08:15 01/24/23 08:30 01/24/23 08:31 Temperature Pulse Rate 52 L 48 L Respiratory Rate 19 30 H Blood Pressure 83/45 Blood Pressure [Left Arm] O2 Sat by Pulse Oximetry 98 97 Oxygen Delivery Method Oxygen Flow Rate FIO2% 01/24/23 08:31 01/24/23 08:45 01/24/23 09:00 Temperature Pulse Rate 49 L 54 L 56 L Respiratory Rate 29 H 24 26 H Blood Pressure Blood Pressure [Left Arm] O2 Sat by Pulse Oximetry 98 96 98 Oxygen Delivery Method Oxygen Flow Rate FIO2% 01/24/23 09:01 01/24/23 09:11 01/24/23 09:13 Temperature Pulse Rate 53 L 49 L 51 L Respiratory Rate 25 H 26 H 18 Blood Pressure Blood Pressure [Left Arm] O2 Sat by Pulse Oximetry 98 99 99 Oxygen Delivery Method Oxygen Flow Rate FIO2% 01/24/23 09:14 01/24/23 09:14 01/24/23 09:15 Temperature Pulse Rate 54 L 49 L Respiratory Rate 19 19 Blood Pressure 104/51 Blood Pressure [Left Arm] O2 Sat by Pulse Oximetry 98 98 Oxygen Delivery Method Oxygen Flow Rate FIO2% 01/24/23 10:25 01/24/23 09:30 01/24/23 09:30 Temperature Pulse Rate 58 L Respiratory Rate 21 Blood Pressure 107/52 Blood Pressure [Left Arm] O2 Sat by Pulse Oximetry 98 Oxygen Delivery Method Room Air Oxygen Flow Rate 2 FIO2% 28 01/24/23 09:45 01/24/23 10:00 01/24/23 10:00 Temperature Pulse Rate 53 L 60 Respiratory Rate 21 21 Blood Pressure 98/53 Blood Pressure [Left Arm] O2 Sat by Pulse Oximetry 99 99 Oxygen Delivery Method Oxygen Flow Rate FIO2% 01/24/23 10:15 01/24/23 10:30 01/24/23 10:30 Temperature Pulse Rate 50 L 48 L Respiratory Rate 17 18 Blood Pressure 115/54 Blood Pressure [Left Arm] O2 Sat by Pulse Oximetry 100 100 Oxygen Delivery Method Oxygen Flow Rate FIO2% 01/24/23 10:45 01/24/23 11:00 01/24/23 11:00 Temperature Pulse Rate 54 L 49 L Respiratory Rate 22 24 Blood Pressure 121/60 Blood Pressure [Left Arm] O2 Sat by Pulse Oximetry 99 99 Oxygen Delivery Method Oxygen Flow Rate FIO2% 01/24/23 11:15 01/24/23 11:30 01/24/23 11:30 Temperature Pulse Rate 46 L 45 L Respiratory Rate 20 17 Blood Pressure 118/56 Blood Pressure [Left Arm] O2 Sat by Pulse Oximetry 98 97 Oxygen Delivery Method Oxygen Flow Rate FIO2% 01/24/23 11:51 01/24/23 12:00 01/24/23 12:01 Temperature Pulse Rate 60 57 L Respiratory Rate 19 26 H Blood Pressure 121/52 Blood Pressure [Left Arm] O2 Sat by Pulse Oximetry 99 99 Oxygen Delivery Method Oxygen Flow Rate FIO2% 01/24/23 12:01 01/24/23 12:15 01/24/23 12:30 Temperature Pulse Rate 56 L 47 L Respiratory Rate 16 15 Blood Pressure 130/62 Blood Pressure [Left Arm] O2 Sat by Pulse Oximetry 100 98 Oxygen Delivery Method Oxygen Flow Rate FIO2% 01/24/23 12:30 01/24/23 12:45 01/24/23 13:00 Temperature Pulse Rate 46 L 45 L Respiratory Rate 13 14 Blood Pressure 128/60 Blood Pressure [Left Arm] O2 Sat by Pulse Oximetry 99 98 Oxygen Delivery Method Oxygen Flow Rate FIO2% 01/24/23 13:00 01/24/23 08:00 01/24/23 12:00 Temperature 97.6 F 97.7 F Pulse Rate 45 L Respiratory Rate 13 Blood Pressure Blood Pressure [Left Arm] O2 Sat by Pulse Oximetry 97 Oxygen Delivery Method Oxygen Flow Rate FIO2% 01/24/23 13:15 01/24/23 13:30 01/24/23 13:30 Temperature Pulse Rate 44 L 44 L Respiratory Rate 13 15 Blood Pressure 145/65 Blood Pressure [Left Arm] O2 Sat by Pulse Oximetry 97 97 Oxygen Delivery Method Oxygen Flow Rate FIO2% 01/24/23 13:45 01/24/23 14:00 01/24/23 14:00 Temperature Pulse Rate 44 L 43 L Respiratory Rate 14 21 Blood Pressure 159/71 Blood Pressure [Left Arm] O2 Sat by Pulse Oximetry 98 98 Oxygen Delivery Method Oxygen Flow Rate FIO2% 01/24/23 15:07 01/24/23 14:15 01/24/23 14:30 Temperature Pulse Rate 45 L Respiratory Rate 15 27 H Blood Pressure 157/70 Blood Pressure [Left Arm] O2 Sat by Pulse Oximetry 99 Oxygen Delivery Method Oxygen Flow Rate FIO2% 01/24/23 14:30 01/24/23 14:45 01/24/23 15:03 Temperature Pulse Rate 44 L 44 L 63 Respiratory Rate 17 15 29 H Blood Pressure Blood Pressure [Left Arm] O2 Sat by Pulse Oximetry 97 97 95 Oxygen Delivery Method Oxygen Flow Rate FIO2% 01/24/23 15:15 01/24/23 15:30 01/24/23 15:45 Temperature Pulse Rate 51 L 53 L 50 L Respiratory Rate 22 19 20 Blood Pressure Blood Pressure [Left Arm] O2 Sat by Pulse Oximetry 98 98 97 Oxygen Delivery Method Oxygen Flow Rate FIO2% 01/24/23 16:00 01/24/23 16:15 01/24/23 16:24 Temperature Pulse Rate 50 L 53 L Respiratory Rate 26 H 28 H Blood Pressure 131/62 Blood Pressure [Left Arm] O2 Sat by Pulse Oximetry 97 98 Oxygen Delivery Method Oxygen Flow Rate FIO2% 01/24/23 16:24 01/24/23 16:30 01/24/23 16:30 Temperature Pulse Rate 56 L 58 L Respiratory Rate 19 29 H Blood Pressure 133/59 Blood Pressure [Left Arm] O2 Sat by Pulse Oximetry 97 99 Oxygen Delivery Method Oxygen Flow Rate FIO2% 01/24/23 16:45 01/24/23 17:00 01/24/23 17:00 Temperature Pulse Rate 54 L 59 L Respiratory Rate 24 25 H Blood Pressure 123/55 Blood Pressure [Left Arm] O2 Sat by Pulse Oximetry 99 98 Oxygen Delivery Method Oxygen Flow Rate FIO2% 01/24/23 17:15 01/24/23 17:30 01/24/23 17:30 Temperature Pulse Rate 55 L 56 L Respiratory Rate 24 22 Blood Pressure 126/60 Blood Pressure [Left Arm] O2 Sat by Pulse Oximetry 99 98 Oxygen Delivery Method Oxygen Flow Rate FIO2% 01/24/23 17:45 01/24/23 18:00 01/24/23 18:00 Temperature Pulse Rate 60 61 Respiratory Rate 32 H 32 H Blood Pressure 105/69 Blood Pressure [Left Arm] O2 Sat by Pulse Oximetry 98 100 Oxygen Delivery Method Oxygen Flow Rate FIO2% 01/24/23 18:15 01/24/23 19:00 01/24/23 16:07 Temperature 97.7 F Pulse Rate 62 55 L Respiratory Rate 21 22 16 Blood Pressure 132/60 Blood Pressure [Left Arm] O2 Sat by Pulse Oximetry 98 99 Oxygen Delivery Method Oxygen Flow Rate FIO2% 01/24/23 20:00 01/24/23 19:00 01/24/23 21:00 Temperature Pulse Rate 54 L 49 L Respiratory Rate 26 H 20 Blood Pressure 130/63 155/68 Blood Pressure [Left Arm] O2 Sat by Pulse Oximetry 98 99 Oxygen Delivery Method Nasal Cannula Oxygen Flow Rate 2 FIO2% 01/24/23 22:00 01/24/23 23:00 01/25/23 00:00 Temperature 97.7 F Pulse Rate 46 L 56 L 50 L Respiratory Rate 17 28 H 24 Blood Pressure 162/69 127/52 137/63 Blood Pressure [Left Arm] O2 Sat by Pulse Oximetry 99 99 96 Oxygen Delivery Method Oxygen Flow Rate FIO2% 01/25/23 01:00 01/25/23 02:00 01/25/23 03:00 Temperature Pulse Rate 48 L 55 L 52 L Respiratory Rate 18 18 16 Blood Pressure 167/74 176/74 162/72 Blood Pressure [Left Arm] O2 Sat by Pulse Oximetry 96 97 95 Oxygen Delivery Method Oxygen Flow Rate FIO2% 01/25/23 04:00 01/25/23 05:00 01/24/23 21:25 Temperature 97.7 F Pulse Rate 60 52 L Respiratory Rate 22 16 Blood Pressure 176/72 167/71 Blood Pressure [Left Arm] O2 Sat by Pulse Oximetry 97 95 Oxygen Delivery Method Nasal Cannula Oxygen Flow Rate 2 FIO2% 28 01/25/23 06:00 01/25/23 07:00 01/25/23 10:05 Temperature Pulse Rate 57 L Respiratory Rate 17 Blood Pressure 166/73 Blood Pressure [Left Arm] O2 Sat by Pulse Oximetry 99 Oxygen Delivery Method Nasal Cannula Room Air Oxygen Flow Rate 2 FIO2% 21 01/25/23 10:05 01/25/23 07:00 01/25/23 08:00 Temperature 97.5 F L Pulse Rate 57 L 64 Respiratory Rate 18 21 Blood Pressure 144/64 145/65 Blood Pressure [Left Arm] O2 Sat by Pulse Oximetry 98 96 95 Oxygen Delivery Method Room Air Room Air Oxygen Flow Rate FIO2% 01/25/23 09:00 01/25/23 10:00 01/25/23 12:00 Temperature 97.9 F Pulse Rate 60 53 L 63 Respiratory Rate 23 15 18 Blood Pressure 149/65 175/77 177/77 Blood Pressure [Left Arm] O2 Sat by Pulse Oximetry 98 96 98 Oxygen Delivery Method Room Air Room Air Room Air Oxygen Flow Rate FIO2% 01/25/23 13:00 01/25/23 14:00 01/25/23 15:00 Temperature Pulse Rate 62 61 54 L Respiratory Rate 20 20 17 Blood Pressure 162/74 142/63 136/60 Blood Pressure [Left Arm] O2 Sat by Pulse Oximetry 98 98 97 Oxygen Delivery Method Room Air Room Air Room Air Oxygen Flow Rate FIO2% 01/25/23 16:00 01/25/23 17:00 01/25/23 18:00 Temperature 98.0 F Pulse Rate 57 L 59 L 57 L Respiratory Rate 18 23 21 Blood Pressure 160/67 162/71 154/70 Blood Pressure [Left Arm] O2 Sat by Pulse Oximetry 98 97 98 Oxygen Delivery Method Room Air Room Air Room Air Oxygen Flow Rate FIO2% 01/25/23 19:00 01/25/23 19:00 01/25/23 20:33 Temperature 98.3 F Pulse Rate 58 L Respiratory Rate 25 H Blood Pressure 160/79 Blood Pressure [Left Arm] O2 Sat by Pulse Oximetry 100 Oxygen Delivery Method Room Air Nasal Cannula Nasal Cannula Oxygen Flow Rate 2 2 FIO2% 28 01/25/23 20:00 01/25/23 21:00 01/25/23 22:00 Temperature Pulse Rate 54 L 56 L 46 L Respiratory Rate 33 H 24 16 Blood Pressure 172/74 176/64 166/71 Blood Pressure [Left Arm] O2 Sat by Pulse Oximetry 98 98 97 Oxygen Delivery Method Room Air Room Air Room Air Oxygen Flow Rate FIO2% 01/25/23 23:00 01/26/23 00:00 01/26/23 01:00 Temperature 97.7 F Pulse Rate 51 L 53 L 52 L Respiratory Rate 18 14 15 Blood Pressure 169/74 179/76 169/100 Blood Pressure [Left Arm] O2 Sat by Pulse Oximetry 99 99 98 Oxygen Delivery Method Room Air Room Air Room Air Oxygen Flow Rate FIO2% 01/26/23 01:12 01/26/23 02:00 01/26/23 03:00 Temperature Pulse Rate 52 L 59 L 53 L Respiratory Rate 17 23 19 Blood Pressure 171/77 171/71 162/69 Blood Pressure [Left Arm] O2 Sat by Pulse Oximetry 98 98 97 Oxygen Delivery Method Room Air Room Air Room Air Oxygen Flow Rate FIO2% 01/26/23 04:00 01/26/23 05:00 01/26/23 06:00 Temperature 98.0 F Pulse Rate 57 L 56 L 54 L Respiratory Rate 18 20 17 Blood Pressure 161/71 178/77 162/72 Blood Pressure [Left Arm] O2 Sat by Pulse Oximetry 98 99 99 Oxygen Delivery Method Room Air Room Air Room Air Oxygen Flow Rate FIO2% 01/26/23 07:00 01/26/23 09:23 01/26/23 07:00 Temperature Pulse Rate 53 L Respiratory Rate 28 H Blood Pressure 175/73 Blood Pressure [Left Arm] O2 Sat by Pulse Oximetry 99 Oxygen Delivery Method Room Air Room Air Room Air Oxygen Flow Rate FIO2% 21 01/26/23 08:00 01/26/23 09:00 01/26/23 10:00 Temperature 97.5 F L Pulse Rate 57 L 55 L 50 L Respiratory Rate 23 20 38 H Blood Pressure 160/78 99/55 183/80 Blood Pressure [Left Arm] O2 Sat by Pulse Oximetry 99 99 97 Oxygen Delivery Method Room Air Room Air Room Air Oxygen Flow Rate FIO2% 01/26/23 11:00 01/26/23 12:00 Temperature 98.0 F Pulse Rate 59 L 60 Respiratory Rate 30 H 22 Blood Pressure 185/87 158/78 Blood Pressure [Left Arm] O2 Sat by Pulse Oximetry 99 98 Oxygen Delivery Method Room Air Room Air Oxygen Flow Rate FIO2% Labs: Laboratory Last Values WBC 5.8 X10^3/uL (3.6-10.0) 01/25/23 02:05 RBC 3.57 X10^6/uL (3.5-5.4) 01/25/23 02:05 Hgb 11.2 g/dL (12.0-16.0) L 01/25/23 02:05 Hct 33.4 % (36.0-47.0) L 01/25/23 02:05 MCV 93.3 fL (80.0-100.0) 01/25/23 02:05 MCH 31.3 pg (27.0-34.0) 01/25/23 02:05 MCHC 33.5 g/dL (33.0-35.0) 01/25/23 02:05 RDW 13.4 % (11.6-16.5) 01/25/23 02:05 Plt Count 186 X10^3/uL (150.0-450.0) 01/25/23 02:05 MPV 9.0 fL (7.4-11.0) 01/25/23 02:05 Neut % (Auto) 48.4 % (42.0-75.0) 01/25/23 02:05 Lymph % (Auto) 35.3 % (21.0-51.0) 01/25/23 02:05 [place] % (Auto) 10.8 % (0.0-13.0) 01/25/23 02:05 Eos % (Auto) 3.3 % (0.9-2.9) H 01/25/23 02:05 Baso % (Auto) 2.2 % (0.2-1.0) H 01/25/23 02:05 Neut # (Auto) 2.8 x10^3/uL (2.2-4.8) 01/25/23 02:05 Lymph # (Auto) 2.0 X10^3/uL (1.3-2.9) 01/25/23 02:05 [place] # (Auto) 0.6 x10^3/uL (0.3-0.8) 01/25/23 02:05 Eos # (Auto) 0.2 x10^3/uL (0.0-0.2) 01/25/23 02:05 Baso # (Auto) 0.1 X10^3/uL (0.0-0.1) 01/25/23 02:05 Absolute Nucleated RBC 0.1 /100WBC 01/25/23 02:05 PT 13.0 SECONDS (11.8-14.3) 01/23/23 14:46 INR Target Range - 01/23/23 14:46 INR 1.00 (0.8-1.3) 01/23/23 14:46 APTT 69.3 SECONDS (22.9-36.5) H 01/26/23 11:36 PTT Comment - 01/26/23 11:36 Sodium 138 mmol/L (136-145) 01/25/23 02:05 Corrected Sodium TNP 01/25/23 02:05 Potassium 3.8 mmol/L (3.5-5.1) 01/25/23 02:05 Chloride 106 mmol/L (98-107) 01/25/23 02:05 Carbon Dioxide 29.2 mmol/L (21-32) 01/25/23 02:05 BUN 14 mg/dL (7-18) 01/25/23 02:05 Creatinine 0.84 mg/dL (0.55-1.02) 01/25/23 02:05 Est GFR (MDRD) Af Amer > 60 (>60) 01/25/23 02:05 Est GFR (MDRD) Non-Af > 60 (>60) 01/25/23 02:05 Glucose 81 mg/dL (65-99) 01/25/23 02:05 Calcium 7.9 mg/dL (8.5-10.1) L 01/25/23 02:05 Corrected Calcium 9.0 mg/dL (8.5-10.1) 01/25/23 02:05 Magnesium 1.8 mg/dL (2.0-2.9) L 01/25/23 02:05 Total Bilirubin 0.30 mg/dL (0.2-1.0) 01/25/23 02:05 AST 14 Units/L (15-37) L 01/25/23 02:05 ALT 7 Units/L (12-78) L 01/25/23 02:05 Alkaline Phosphatase 40 Units/L (46-116) L 01/25/23 02:05 Total Protein 5.5 g/dL (6.4-8.2) L 01/25/23 02:05 Albumin 2.6 g/dL (3.4-5.0) L 01/25/23 02:05 Globulin 2.9 g/dL (2.5-4.5) 01/25/23 02:05 Albumin/Globulin Ratio 0.9 Ratio (1.1-2.1) L 01/25/23 02:05 Reason For Visit: ISCHEMIC RIGHT LOWER EXTREMITY Discharge Date Discharge Date: 01/26/23 Discharge Diagnosis All Active Problems (Updated 01/24/23 @ 00:11 by Mark Tian) Atherosclerosis of [place] arteries of extremities with rest pain, right leg (Acute) Atherosclerosis of [place] arteries of extremities with rest pain, left leg (Acute) Dyslipidemia (Acute) Chronic obstructive pulmonary disease, unspecified (Acute) Chronic ischemic heart disease, unspecified (Acute) Urinary tract infection (Acute) Fracture of metatarsal bone of right foot (Acute) Toothache (Acute) Hypertension (Acute) Hip pain, right (Acute) Degenerative joint disease (DJD) of hip (Acute) Essential hypertension (Acute) Chronic right-sided low back pain with right-sided sciatica (Acute) Laceration of forearm, right (Acute) Plan of Treatment: Continue with present treatment and follow up plan. Pt is to keep follow up appointment as instructed and take medications as ordered. Discharge Medications Discharge Medications: ciprofloxacin [From Cipro] Allergy (Verified 07/07/19 03:10) HIVES citalopram [From Celexa] Allergy (Verified 07/07/19 03:10) BONE PAIN nitrofurantoin [From Macrobid] Allergy (Verified 07/07/19 03:10) NAUSEA/VOMITING/JITTERY Penicillins Allergy (Verified 06/18/19 01:32) tramadol Allergy (Verified 07/07/19 03:10) NAUSEA/VOMITING CONTINUE taking the following medications fluticasone propionate 50 mcg/actuation nasal spray,suspension 100 mcg intranasal DAILY 01/23/23 [History] megestrol 400 mg/10 mL (40 mg/mL) oral suspension 40 mg PO DAILY 01/23/23 [History] Discharge Disposition Assessment: see hospital course Discharge Plan Discharge Plan Hospital Course: This patient is an 83 year old female with history of coronary artery disease that is s/p coronary artery bypass grafting, hypertension and COPD who [facility] complaining of bilateral lower extremity rest pain and ankle brachial indices of 0.5 bilaterally. Patient complained of the right side hurting the most. Because of the severe rest pain she was admitted and placed on a Heparin drip. CT angiogram showed complete occlusion of the right popliteal artery with poor run off. Left side showed severe disease of the left superficial femoral artery and popliteal artery as well. She was treated with a Heparin drip and was taken to the operating Suite on January 26 where aortogram was normall. Proximal and distal superficial femoral artery was normal. She had a ooclusion of the right popliteal artery and tibial peroneal trunk with no apparent run off to the right foot. I was able to open up the peroneal artery and treated artery with atherectomy and balloon angioplasty and did atherectomy and drug-coated balloon angioplasty of the right tibial peroneal trunk and popliteal artety . She has done well and will be discharged home her usual home medications Plus Xarelto 2.5 mg BID. She already takes aspirin daily. I will see her in follow up in one week. At that time we will schedule intervention of the left leg arteries for significant ischemia and rest pain. Patient Disposition: 01 HOME, SELF-CARE Condition: Stable Health Concerns: Post Hospitalization: new medications and changes needed to prevent readmission or further decline. Pt educated and given instructions on all concerns. Care Plan Goals: Problem: Altered Tissue Perfusion Goal: Adequate Tissue Perfusion Instructions: Follow provided instructions. Follow up with primary physician as directed. Contact primary care physician or report to the closest Emergency Room if condition worsens. Plan of Treatment: Continue with present treatment and follow up plan. Pt is to keep follow up appointment as instructed and take medications as ordered. Assessment: see hospital course Prescription drug monitoring program results: PDMP reviewed with concerns identified Prescriptions: New Xarelto 2.5 mg tablet 2.5 mg PO BID Qty: 120 0RF Continued megestrol 400 mg/10 mL (40 mg/mL) suspension 40 mg PO DAILY fluticasone propionate 50 mcg/actuation spray,suspension 100 mcg INTRANASAL DAILY Patient Comments: [NO ORIGINAL SIG] Rx Instructions: Inhale 2 sprays each Nostril daily lisinopril 20 mg tablet 20 mg PO BID Patient Comments: Take ONE (1) Tablet by mouth TWO (2) Times Each Day 90-DAY SUPPLY hydrocodone-acetaminophen 10-325 mg tablet 1 tab PO Q6HR PRN (Reason: Pain) Patient Comments: Take ONE (1) Tablet by mouth THREE (3) or FOUR (4) Times Each Day only as needed 30-DAY SUPPLY simvastatin 20 mg tablet 20 mg PO QHS Patient Comments: Take ONE (1) Tablet by mouth ONE (1) Time Each Day in the EVENING 90-DAY SUPPLY Premarin 0.625 mg tablet 0.625 mg PO DAILY Patient Comments: Take ONE (1) Tablet by mouth ONE (1) Time Each Day 90-DAY SUPPLY ipratropium-albuterol 0.5 mg-3 mg(2.5 mg base)/3 mL Solution For Nebulization 3 ml INHALATION QID PRN aspirin 81 mg Tablet,Delayed Release (Dr/Ec) 81 PO DAILY amlodipine 10 mg Tablet 10 mg PO ONCE triamcinolone acetonide 0.1 % Ointment 1 applic TOPICAL BID PRN cholecalciferol (vitamin D3) [Vitamin D3] 10 mcg (400 unit) Tablet 10 mcg PO ONCE vitamin E 400 unit Capsule 400 unit PO DAILY budesonide-formoterol [Symbicort] 160-4.5 mcg/actuation Hfa Aerosol Inhaler 2 puff INHALATION BID PRN Spiriva Respimat 2.5 mcg/actuation Mist 2 puff INHALATION QAM cyclobenzaprine 10 mg Tablet 10 mg PO TID PRN Follow ups/Referrals Follow ups/Referrals: SANDRA FUENTES [Primary Care Provider] - (Follow up as needed) Mark Tian [STAFF PHYSICIAN] - 02/01/23 10:00 am Instructions Instructions: Atherosclerosis, Endovascular Therapy for Peripheral Vascular Disease, Care After, Endovascular Therapy for Peripheral Vascular Disease Stand Alone Forms: Post Hospital Follow Up Care
[2023-01-26 18:50] VITALS: BP 177/73; PULSE 49; RESP 23; TEMP 98
--- NOTE | 2023-01-31 12:06 | DR.OPNOTE ---
OP NOTE Pre-Op Diagnosis: critical iachemia right leg Post-Op Diagnosis: same Procedure Date Date Of Procedure: 01/26/23 Procedure: PROCEDURE: DIAGNOSTIC AORTOGRAM, DIAGNOSTIC ARTERIOGRAM RIGHT LEG, ATERECTOMY AND ANGIOPLASTY RIGHT PERONEAL ARTERY, ATHERECTOMY AND DRUG COATED BALLOON ANGIOPLASTY RIGHT TIBIAL-PERONEAL TRUNK, ATHERECTOMY AND DRUG COATED BALLOON ANGIOPLASTY RIGHT POPLITEAL ARTERY NARRATIVE : The patient was taken to the operative suite and placed in the supine position. The left groin and entire right leg were prepped and draped in sterile fashion. The patient was given intravenous sedation supervised by myself. Time out for the procedure obtained. Ultrasound used to identify the left femoral artery and the skin overlying it infiltrated with 0.5% Marcaine. Ultrasound then used to guide puncture of the left femoral artery and a 0.012 inch guide wire was placed. Incision made over the guide wire at the skin edge with a # 11 knife blade and a micro sheath placed over the guide wire into the left femoral artery The small guidewire exchanged for a 0.035 inch Advantage glide wire and the micro sheath exchanged for a 5 Fr vascular sheath Patient given 5000 units of intravenous heparin. Omni catheter was placed over the g uide wire into the aorta and diagnostic aortogram carried out with the power injector showing normal aorta and iliac arteries . Omni catheter was used to steer the guide wire down the right common iliac artery to the distal right external iliac artery . Omni catheter was exchanged for a [place] catheter and sequential arteriograms carried out of the right lower extremity showing completely occluded right popliteal artery , completely occluded right tibial peroneal trunk, completely occluded right posterior tibial artery, occluded proximal anterior tibial artery with distal reconstitution, and occlusion proximal right peroneal artery with distal reconstitution. The 5 Fr sheath in the left groin in exchanged for a 7 Fr [place] sheath which was parked in distal right superficial femoral artery. [place] catheter and the guide wire were used to traverse the arteries of the right leg ultimately ending in the distal peroneal artery . This was selective catheterization. 0.035 inch wire removed and exchanged for a 0.014 inch wire. Over this wire we placed the [place] atherectomy device and performed atherectomy of occluded right popliteal artery , the occluded right tibial peroneal trunk and the proximally occluded right proximal peroneal artery. At this point we performed balloon dilatation of the right peroneal artery using a [place] 3.0x 220 mm b alloon, drug coated balloon angioplasty of the tibial peroneal trunk using a [place] drug coated balloon measuring 4x 150 mm inflating it for three minutes and [place] drug coated balloon dilatation of the right popliteal artery with a [place] 4x 150 mm drug coated balloon inflating it for three minutes . Arteriogram at the completion of these angioplasties showed excellent result. I tried to get a wire across the completed occluded take off of the right anterior tibial artery but this was unsuccessful. Because we had established inflow and run off by the right peroneal artery we elected to stop All wires and devices removed. The 7 Fr sheath was pulled back into the aorta and a 0.035 inch wire placed. The destination sheath exchanged for an Angioseal device used to close the puncture of the left femoral artery. .Dressing applied to the left groin. The patient taken to same day surgery in good condition. Type of Anesthesia: Local (0.5% Marcaine) Anesthesia Comment: plus MAC Findings: completely occluded right popliteal artery and tibial-peroneal trunk , completely occluded takeoff of the right anterior tibial artery with reconstitution distally, completely occluded right peroneal and posterior tibial arteries with reconstitution of the right peroneal artery distally. Type of Fluids Used:: Lactated Ringers Total Amount of Fluid Infused:: 400 cc Urine output: 300 cc EBL: 100 cc Complications:: none Needle/Sponge Count:: correct Disposition/Condition: Pt. tolerated procedure without difficulty. Patient returned to [facility] in stable condition.
== END 2023-01-26 19:18 | disposition home or self-care (01) | DRG 272 ==
LOC: ICU 13:53
PROVIDERS: ADMIT Surgery; ATTEND Surgery
DX: J44.9 Chronic obstructive pulmonary disease, unspecified; E78.5 Hyperlipidemia, unspecified; I70.223 Atherosclerosis of native arteries of extremities with rest pain, bilateral legs; I25.10 Atherosclerotic heart disease of native coronary artery without angina pectoris; Z66 Do not resuscitate

== ENCOUNTER 2023-03-29 12:07 | Inpatient (IN) ==
[2023-03-29] MEDS ORDERED: HEPARIN SODIUM IN D5W 25,000 UNITS/500 ML BAG IV PRN (16:41)
[2023-03-29] MEDS ORDERED: DILAUDID INJ IVP PRN (16:42)
[2023-03-29 17:06] LABS: BASOPHILS # (AUTO) 0.1 X10^3/uL (0.0-0.1); BASOPHILS % (AUTO) 1.2 % (0.2-1.0); EOSINOPHILS # (AUTO) 0.1 x10^3/uL (0.0-0.2); HEMATOCRIT 35.5 % (36.0-47.0); HEMOGLOBIN 11.9 g/dL (12.0-16.0); LYMPHOCYTES # (AUTO) 1.6 X10^3/uL (1.3-2.9); LYMPHOCYTES % (AUTO) 27.6 % (21.0-51.0); MEAN CORPUSCULAR HEMOGLOBIN 31.2 pg (27.0-34.0); MEAN CORPUSCULAR HGB CONC 33.6 g/dL (33.0-35.0); MEAN CORPUSCULAR VOLUME 92.9 fL (80.0-100.0); MEAN PLATELET VOLUME 8.7 fL (7.4-11.0); MONOCYTES # (AUTO) 0.6 x10^3/uL (0.3-0.8); MONOCYTES % (AUTO) 11.1 % (0.0-13.0); NEUTROPHILS # (AUTO) 3.4 x10^3/uL (2.2-4.8); NEUTROPHILS % (AUTO) 59.1 % (42.0-75.0); PLATELET COUNT 208 X10^3/uL (150.0-450.0); RED BLOOD COUNT 3.82 X10^6/uL (3.5-5.4); WHITE BLOOD COUNT 5.7 X10^3/uL (3.6-10.0)
[2023-03-29 17:25] LABS: ALANINE AMINOTRANSFERASE 8 Units/L (12-78); ALBUMIN 3.3 g/dL (3.4-5.0); ALKALINE PHOSPHATASE 60 Units/L (46-116); ASPARTATE AMINO TRANSFERASE 14 Units/L (15-37); BLOOD UREA NITROGEN 12 mg/dL (7-18); CALCIUM 8.9 mg/dL (8.5-10.1); CARBON DIOXIDE 27.9 mmol/L (21-32); CHLORIDE 105 mmol/L (98-107); COR CA(FOR HYPOALB) 9.5 mg/dL (8.5-10.1); CREATININE 0.91 mg/dL (0.55-1.02); GLUCOSE 88 mg/dL (65-99); POTASSIUM 3.4 mmol/L (3.5-5.1); SODIUM 139 mmol/L (136-145); TOTAL PROTEIN 6.9 g/dL (6.4-8.2); eGFR NON BLACK RACES > 60 (>60)
[2023-03-29 17:39] VITALS: BMI 15.3
--- NOTE | 2023-03-29 17:52 | DR.H&P ---
H&P History & Physical for Day of: H&P Date: 03/29/23 Chief Complaint Chief Complaint: 83 yo female with severe rest pain left foot. Had b/l LE rest pain and had atherectomy and drug coated stenting of the right distal popliteal and tibial peroneal trunks. CTA has shown severe disease of the left popliteal artery . Rest pain has gotten worse and is not relieved with narcotics . Allergies Allergies Allergy/AdvReac Type Severity Reaction Status Date / Time ciprofloxacin [From Cipro] Allergy HIVES Verified 07/07/19 03:10 citalopram [From Celexa] Allergy BONE PAIN Verified 07/07/19 03:10 nitrofurantoin Allergy NAUSEA/VOMI Verified 07/07/19 03:10 [From Macrobid] TING/JITTER Y Penicillins Allergy Verified 06/18/19 01:32 tramadol Allergy NAUSEA/VOMI Verified 07/07/19 03:10 TING History of Present Illness History of Present Illness: see above Past Medical History Past Medical History: COPD, Coronary Artery Disease, Depression, Dyslipidemia and Hypertension Past Surgical History Surgical History: CABG/Valve Surgery and Hysterectomy Family History Family Medical History: Cancer and GA Social History Does patient currently use any type of tobacco product: No Type of Tobacco Use: None Alcohol Use: None Medications Home Medications: Home Medications Medication Instructions Recorded Confirmed Type amlodipine 10 mg tablet 10 mg PO ONCE 01/28/21 01/23/23 History aspirin 81 mg tablet,delayed 81 PO DAILY 01/28/21 History release budesonide-formoterol HFA 160 2 puff inhalation BID PRN 01/28/21 01/23/23 History mcg-4.5 mcg/actuation aerosol inhaler (Symbicort) cholecalciferol (vitamin D3) 10 10 mcg PO ONCE 01/28/21 01/23/23 History mcg (400 unit) tablet (Vitamin D3) conjugated estrogens 0.625 mg 0.625 mg PO DAILY 01/28/21 01/23/23 History tablet (Premarin) cyclobenzaprine 10 mg tablet 10 mg PO TID PRN 01/28/21 01/23/23 History hydrocodone 10 mg-acetaminophen 1 tab PO Q6HR PRN Pain 01/28/21 01/23/23 History 325 mg tablet ipratropium 0.5 mg-albuterol 3 mg 3 ml inhalation QID PRN 01/28/21 01/23/23 History (2.5 mg base)/3 mL nebulization soln lisinopril 20 mg tablet 20 mg PO BID 01/28/21 01/23/23 History simvastatin 20 mg tablet 20 mg PO QHS 01/28/21 01/23/23 History tiotropium bromide 2.5 2 puff inhalation QAM 01/28/21 01/23/23 History mcg/actuation mist for inhalation (Spiriva Respimat) triamcinolone acetonide 0.1 % 1 applic topical BID PRN 01/28/21 01/23/23 History topical ointment vitamin E 268 mg (400 unit) capsule 400 unit PO DAILY 01/28/21 01/23/23 History fluticasone propionate 50 100 mcg intranasal DAILY 01/23/23 01/26/23 History mcg/actuation nasal spray,suspension megestrol 400 mg/10 mL (40 mg/mL) 40 mg PO DAILY 01/23/23 01/23/23 History oral suspension Labs 03/29/23 16:54 03/29/23 16:54 Labs: Laboratory WBC 5.7 X10^3/uL (3.6-10.0) 03/29/23 16:54 RBC 3.82 X10^6/uL (3.5-5.4) 03/29/23 16:54 Hgb 11.9 g/dL (12.0-16.0) L 03/29/23 16:54 Hct 35.5 % (36.0-47.0) L 03/29/23 16:54 MCV 92.9 fL (80.0-100.0) 03/29/23 16:54 MCH 31.2 pg (27.0-34.0) 03/29/23 16:54 MCHC 33.6 g/dL (33.0-35.0) 03/29/23 16:54 RDW 13.0 % (11.6-16.5) 03/29/23 16:54 Plt Count 208 X10^3/uL (150.0-450.0) 03/29/23 16:54 MPV 8.7 fL (7.4-11.0) 03/29/23 16:54 Neut % (Auto) 59.1 % (42.0-75.0) 03/29/23 16:54 Lymph % (Auto) 27.6 % (21.0-51.0) 03/29/23 16:54 Hand % (Auto) 11.1 % (0.0-13.0) 03/29/23 16:54 Eos % (Auto) 1.0 % (0.9-2.9) 03/29/23 16:54 Baso % (Auto) 1.2 % (0.2-1.0) H 03/29/23 16:54 Neut # (Auto) 3.4 x10^3/uL (2.2-4.8) 03/29/23 16:54 Lymph # (Auto) 1.6 X10^3/uL (1.3-2.9) 03/29/23 16:54 Hand # (Auto) 0.6 x10^3/uL (0.3-0.8) 03/29/23 16:54 Eos # (Auto) 0.1 x10^3/uL (0.0-0.2) 03/29/23 16:54 Baso # (Auto) 0.1 X10^3/uL (0.0-0.1) 03/29/23 16:54 Absolute Nucleated RBC 0.0 /100WBC 03/29/23 16:54 Review of Systems Constitutional: See HPI Eyes: No Symptoms Reported ENT: No Symptoms Reported Respiratory: Other (hx of COPD) Cardiovascular: Other (hx CAD) Gastrointestinal: No Symptoms Reported Genitourinary: No Symptoms Reported Musculoskeletal: See HPI Skin: Other (no skin problems except bruising) Neurological: No Symptoms Reported Oriented: Normal, Time, Person and Place Eyes: Normal Ear: Normal Nose: Normal Throat: Normal Respiratory: Clear Throughout Cardiovascular: Normal and Other (No wounds either foot. Left foot is cool compared to the right. Right anterior tibial and residence life coordinator to arteries have bipahsic flow. I can hear no flow in the left ankle or foot ,Papable right femoral artery ,left femoral artery pulsation weaker than the right ) : Normal Auscultation: Bowel Sounds: Normal Palpation: Normal Tenderness: Normal Skin: Ecchymosis (see above ) Musculoskeletal: Normal Psychiatric: Normal Mood Description: Calm Affect: Normal Speech Pattern: Clear Assessment/Plan (1) Atherosclerosis of [place] arteries of extremities with rest pain, left leg: Status: Acute Plan: patient admitted and placed on a Heparin drip. Plan aortogram, a rteriogram left leg , possible atherectomy , possible angioplasty, possible stenting of the left popliteal artery. Will need to assess the left iliac artery. (2) Atherosclerosis of [place] arteries of extremities with rest pain, right leg: Status: Acute Plan: Rest pain resolved right s/p atherectomy and stenting of right popliteal and right tibial peroneal trunk arteries in 01/2023 (3) Dyslipidemia: Status: Acute Plan: home dose Simvastin (4) Chronic obstructive pulmonary disease, unspecified: Status: Acute Plan: begin home nebulizers (5) Chronic ischemic heart disease, unspecified: Status: Acute Plan: stable, usual home medications (6) Hypertension: Qualifiers: Hypertension type: essential hypertension Qualified Code(s): I10 - Essential (primary) hypertension Status: Acute Plan: continue home medications Review H&P Reviewed: Yes Patient was examined?: Yes
[2023-03-29] MEDS ORDERED: HEPARIN SODIUM INJ 5000 UNITS IVP ONE (18:03)
[2023-03-29 18:21] LABS: INR 1.15 (0.8-1.3)
[2023-03-29] MEDS: LR 1,000 ML IV 1,000 ML IV SCH (18:30)
[2023-03-29] MEDS ORDERED: HIBICLENS WASH EXT ONE (20:42)
[2023-03-29] MEDS ORDERED: ZOCOR TAB 20 MG PO SCH (21:00)
[2023-03-29] MEDS: DUONEB 0.5 MG/3 MG (3 mL) NEB SCH (21:29)
[2023-03-29] MEDS ORDERED: HIBICLENS WASH ONE (23:51)
[2023-03-30] MEDS ORDERED: HEPARIN SODIUM INJ 5000 UNITS IVP ONE ×2 (01:13→01:25)
[2023-03-30] MEDS: LR 1,000 ML IV 1,000 ML IV SCH (06:30)
[2023-03-30] MEDS ORDERED: ZOFRAN INJ 4 MG VIAL ONE (08:33)
[2023-03-30] MEDS ORDERED: HEPARIN SODIUM INJ 5000 UNITS ONE (08:33)
[2023-03-30] MEDS ORDERED: PEPCID 20 MG VIAL ONE (08:33)
[2023-03-30] MEDS ORDERED: DIPRIVAN VIAL 20 ML ONE (08:33)
[2023-03-30] MEDS ORDERED: FENTANYL VIAL INJ 100 mcg ONE (08:34)
[2023-03-30] MEDS ORDERED: VERSED ONE (08:34)
[2023-03-30] MEDS ORDERED: ANCEF VIAL 1 GRAM ONE (08:56)
[2023-03-30] MEDS ORDERED: LR 1,000 ML IV 1,000 ML IV ONE (08:56)
[2023-03-30] MEDS ORDERED: NS 100 ML IV 100 ML ONE (08:57)
[2023-03-30] MEDS ORDERED: ZESTRIL TAB 20 MG PO SCH (09:00)
[2023-03-30] MEDS ORDERED: NORVASC TAB 10 MG PO SCH (09:00)
[2023-03-30] MEDS ORDERED: MEGACE ORAL SUSP 400 MG/10 ML PO SCH (09:00)
[2023-03-30] MEDS ORDERED: PREMARIN PO SCH (09:00)
[2023-03-30] MEDS ORDERED: ASPIRIN EC 81 MG PO SCH (09:00)
[2023-03-30] MEDS ORDERED: MARCAINE 0.5% ONE (09:19)
[2023-03-30] MEDS ORDERED: HEPARIN SODIUM IN D5W 75,000 UNITS/1,500 ML BAG ONE (09:20)
[2023-03-30] MEDS ORDERED: XYLOCAINE 2 % (PLAIN) ONE (09:34)
[2023-03-30] MEDS ORDERED: KETAMINE HCL ONE (09:34)
[2023-03-30] MEDS ORDERED: PRECEDEX INJ VIAL IVP ONE (09:34)
[2023-03-30] MEDS ORDERED: ROBINUL ONE (09:44)
[2023-03-30] MEDS ORDERED: EPHEDRINE SULFATE INJ ONE (09:47)
[2023-03-30] MEDS ORDERED: VISIPAQUE 100 ML ONE (09:48)
[2023-03-30] MEDS ORDERED: VISIPAQUE 50 ML ONE (09:48)
[2023-03-30] MEDS: DUONEB 0.5 MG/3 MG (3 mL) NEB SCH (10:12)
[2023-03-30] MEDS ORDERED: NS 500 ML IV 500 ML IV ONE (10:29)
--- NOTE | 2023-03-30 11:18 | OR.IMMED ---
IMMEDIATE POST-OP NOTE Immediate Post-Op Note Date of surgery/procedure: 03/30/23 Pre-Op Diagnosis: Critical ischemia left leg Post-Op Diagnosis: same Procedure: Aortogram , arterigram left leg, atherectomy of the proximal left superficial femoral artery and common femoral artery with stenting of the distal left external iliac artery , Description of Procedure: see dictation Surgeon/Assistant Prosecuting Attorney: Asmita Findings: infrarenal abdominal aortic aneurysm, complete occlusion of the proximal left external iliac artery with reconstitution of the superficial femo ral artery , very localized 50% stenosis distal left superficial artery, occlusion of all trifurcation vessels proximally with reconstitution of the posterior tibial and peroneal artery in the foot with excellent collateral flow around the area of occlusion below the tibial peroneal trunk. Estimated Blood Loss: 150cc Complications: none Progress Notes: Return to the ICU. Discontinue the heparin drip and begin Xarelto and aspirin. Resume diet.
[2023-03-30] MEDS ORDERED: ZOFRAN INJ 4 MG VIAL IVP ONE (13:45)
--- NOTE | 2023-03-30 14:10 | W.DIS.FURT ---
Summary of Discharge Discharge Summary of Date Date of Exam: 03/30/23 Admission Date Date of Admission: 03/29/23 Admission Diagnosis Hospital Course: This 83 year old female was seen by me originally in late December of 2022 with complaints of bilateral lower extremity rest pain .At that time the right leg was the worst. She underwent atherectomy and drug-coated balloon angioplasty of the right popliteal artery , atherectomy and drug coated balloon angioplasty of the right tibial- peroneal trunk and angioplasty of the right peroneal artery. She continued with rest pain of the left leg with noted significant stenosis of the left popliteal artery. Her insurance carrier denied intervention of the left leg . However her rest pain worsened of the left leg and she was admitted. She was placed on a Heparin drip and now she had a m arkedly decreased pulse in the left groin as well as absent pulses of the left ankle. The next day she was taken to the operative Suite where aortogram showed the distal left external iliac artery to be occluded. There was significant disease of the left common femoral artery and proximal left superficial femoral artery. She underwent atherectomy of the proximal left superficial femoral artery and common femoral artery with stenting of the left external iliac artery occlusion and proximal left common femoral artery . Rest pain left leg resolved . There is mild disease of the left distal SFA as well as complete occlusion of all trifurcation vessels below their takeoff with reconstitution of the left anterior tibial and peroneal arteries . There is significant collateral flow around the takeoff of all the trifurcation vessesl. She will be discharged today on her usual medications including Xarelto 2.5 mg BID and aspirin 81 mg daily . Ambulation is encouraged. She will follow up with me in one week. Repeat Doppler studies and ankle brachial indices will determine if additional intervention of the left leg is necessary . Vital Signs: Vital Signs (72 hours) 03/29/23 17:39 03/29/23 16:51 03/29/23 17:00 Temperature Pulse Rate 66 63 Respiratory Rate 48 H 43 H Blood Pressure O2 Sat by Pulse Oximetry 100 100 Oxygen Delivery Method Room Air 03/29/23 17:00 03/29/23 17:15 03/29/23 17:30 Temperature Pulse Rate 67 61 Respiratory Rate 63 H 30 H Blood Pressure 163/73 O2 Sat by Pulse Oximetry 100 100 Oxygen Delivery Method 03/29/23 17:43 03/29/23 17:45 03/29/23 18:00 Temperature Pulse Rate 63 62 Respiratory Rate 63 H 51 H Blood Pressure O2 Sat by Pulse Oximetry Oxygen Delivery Method Room Air 03/29/23 18:02 03/29/23 18:02 03/29/23 19:00 Temperature Pulse Rate 62 Respiratory Rate 48 H Blood Pressure 132/58 O2 Sat by Pulse Oximetry 99 Oxygen Delivery Method Room Air 03/29/23 19:00 03/29/23 20:00 03/29/23 21:00 Temperature 97.9 F Pulse Rate 58 L 54 L 56 L Respiratory Rate 37 H 31 H 37 H Blood Pressure 129/60 136/64 142/64 O2 Sat by Pulse Oximetry 98 98 98 Oxygen Delivery Method Room Air Room Air Room Air 03/29/23 22:00 03/29/23 23:00 03/30/23 00:00 Temperature 97.7 F Pulse Rate 52 L 50 L 52 L Respiratory Rate 29 H 35 H 17 Blood Pressure 131/60 125/58 142/63 O2 Sat by Pulse Oximetry 98 98 99 Oxygen Delivery Method Room Air Room Air Room Air 03/30/23 01:00 03/30/23 02:00 03/30/23 03:00 Temperature Pulse Rate 53 L 55 L 48 L Respiratory Rate 20 23 34 H Blood Pressure 137/60 144/63 137/60 O2 Sat by Pulse Oximetry 97 98 98 Oxygen Delivery Method Room Air Room Air Room Air 03/30/23 04:00 03/30/23 05:00 03/30/23 06:00 Temperature 97.9 F Pulse Rate 51 L 54 L 52 L Respiratory Rate 33 H 36 H 29 H Blood Pressure 143/66 145/81 153/68 O2 Sat by Pulse Oximetry 99 99 99 Oxygen Delivery Method Room Air Room Air Room Air 03/30/23 07:00 03/30/23 07:00 03/30/23 08:00 Temperature 97.8 F Pulse Rate 53 L 57 L Respiratory Rate 30 H 22 Blood Pressure 149/67 137/70 O2 Sat by Pulse Oximetry 99 99 Oxygen Delivery Method Room Air Room Air Room Air 03/30/23 09:00 03/30/23 08:37 Temperature Pulse Rate 55 L Respiratory Rate 16 Blood Pressure 166/72 O2 Sat by Pulse Oximetry 98 Oxygen Delivery Method Room Air Room Air Labs: Laboratory Last Values WBC 5.7 X10^3/uL (3.6-10.0) 03/29/23 16:54 RBC 3.82 X10^6/uL (3.5-5.4) 03/29/23 16:54 Hgb 11.9 g/dL (12.0-16.0) L 03/29/23 16:54 Hct 35.5 % (36.0-47.0) L 03/29/23 16:54 MCV 92.9 fL (80.0-100.0) 03/29/23 16:54 MCH 31.2 pg (27.0-34.0) 03/29/23 16:54 MCHC 33.6 g/dL (33.0-35.0) 03/29/23 16:54 RDW 13.0 % (11.6-16.5) 03/29/23 16:54 Plt Count 208 X10^3/uL (150.0-450.0) 03/29/23 16:54 MPV 8.7 fL (7.4-11.0) 03/29/23 16:54 Neut % (Auto) 59.1 % (42.0-75.0) 03/29/23 16:54 Lymph % (Auto) 27.6 % (21.0-51.0) 03/29/23 16:54 [place] % (Auto) 11.1 % (0.0-13.0) 03/29/23 16:54 Eos % (Auto) 1.0 % (0.9-2.9) 03/29/23 16:54 Baso % (Auto) 1.2 % (0.2-1.0) H 03/29/23 16:54 Neut # (Auto) 3.4 x10^3/uL (2.2-4.8) 03/29/23 16:54 Lymph # (Auto) 1.6 X10^3/uL (1.3-2.9) 03/29/23 16:54 [place] # (Auto) 0.6 x10^3/uL (0.3-0.8) 03/29/23 16:54 Eos # (Auto) 0.1 x10^3/uL (0.0-0.2) 03/29/23 16:54 Baso # (Auto) 0.1 X10^3/uL (0.0-0.1) 03/29/23 16:54 Absolute Nucleated RBC 0.0 /100WBC 03/29/23 16:54 PT 14.5 SECONDS (11.8-14.3) 03/29/23 16:54 INR Target Range - 03/29/23 16:54 INR 1.15 (0.8-1.3) 03/29/23 16:54 APTT 101.0 SECONDS (22.9-36.5) H 03/30/23 06:10 PTT Comment - 03/30/23 06:10 Sodium 139 mmol/L (136-145) 03/29/23 16:54 Corrected Sodium TNP 03/29/23 16:54 Potassium 3.4 mmol/L (3.5-5.1) L 03/29/23 16:54 Chloride 105 mmol/L (98-107) 03/29/23 16:54 Carbon Dioxide 27.9 mmol/L (21-32) 03/29/23 16:54 BUN 12 mg/dL (7-18) 03/29/23 16:54 Creatinine 0.91 mg/dL (0.55-1.02) 03/29/23 16:54 Est GFR (MDRD) Af Amer > 60 (>60) 03/29/23 16:54 Est GFR (MDRD) Non-Af > 60 (>60) 03/29/23 16:54 Glucose 88 mg/dL (65-99) 03/29/23 16:54 Calcium 8.9 mg/dL (8.5-10.1) 03/29/23 16:54 Corrected Calcium 9.5 mg/dL (8.5-10.1) 03/29/23 16:54 Magnesium 1.9 mg/dL (2.0-2.9) L 03/30/23 06:10 Total Bilirubin 0.30 mg/dL (0.2-1.0) 03/29/23 16:54 AST 14 Units/L (15-37) L 03/29/23 16:54 ALT 8 Units/L (12-78) L 03/29/23 16:54 Alkaline Phosphatase 60 Units/L (46-116) 03/29/23 16:54 Total Protein 6.9 g/dL (6.4-8.2) 03/29/23 16:54 Albumin 3.3 g/dL (3.4-5.0) L 03/29/23 16:54 Globulin 3.6 g/dL (2.5-4.5) 03/29/23 16:54 Albumin/Globulin Ratio 0.9 Ratio (1.1-2.1) L 03/29/23 16:54 Reason For Visit: ISCHEMIA TO PTS LEFT LOWER EXT'S Discharge Date Discharge Date: 03/30/23 Discharge Diagnosis All Active Problems (Updated 01/24/23 @ 00:11 by Mark Tian) Atherosclerosis of [place] arteries of extremities with rest pain, left leg (Acute) Atherosclerosis of [place] arteries of extremities with rest pain, right leg (Acute) Dyslipidemia (Acute) Chronic obstructive pulmonary disease, unspecified (Acute) Chronic ischemic heart disease, unspecified (Acute) Urinary tract infection (Acute) Fracture of metatarsal bone of right foot (Acute) Toothache (Acute) Hypertension (Acute) Hip pain, right (Acute) Degenerative joint disease (DJD) of hip (Acute) Essential hypertension (Acute) Chronic right-sided low back pain with right-sided sciatica (Acute) Laceration of forearm, right (Acute) Plan of Treatment: Continue with present treatment and follow up plan. Pt is to keep follow up appointment as instructed and take medications as ordered. Discharge Medications Discharge Medications: ciprofloxacin [From Cipro] Allergy (Verified 07/07/19 03:10) HIVES citalopram [From Celexa] Allergy (Verified 07/07/19 03:10) BONE PAIN nitrofurantoin [From Macrobid] Allergy (Verified 07/07/19 03:10) NAUSEA/VOMITING/JITTERY Penicillins Allergy (Verified 06/18/19 01:32) tramadol Allergy (Verified 07/07/19 03:10) NAUSEA/VOMITING CONTINUE taking the following medications cyclobenzaprine 10 mg tablet 10 mg PO TID PRN 03/29/23 [History] furosemide 20 mg tablet (Lasix) 20 mg PO QDAY 03/29/23 [History] rivaroxaban 2.5 mg tablet (Xarelto) 2.5 mg PO BID 03/29/23 [History] aspirin 81 mg po daily Discharge Disposition Assessment: see hospital course Discharge Plan Discharge Plan Hospital Course: This 83 year old female was seen by me originally in late December of 2022 with complaints of bilateral lower extremity rest pain .At that time the right leg was the worst. She underwent atherectomy and drug-coated balloon angioplasty of the right popliteal artery , atherectomy and drug coated balloon angioplasty of the right tibial- peroneal trunk and angioplasty of the right peroneal artery. She continued with rest pain of the left leg with noted significant stenosis of the left popliteal artery. Her insurance carrier denied intervention of the left leg . However her rest pain worsened of the left leg and she was admitted. She was placed on a Heparin drip and now she had a markedly decreased pulse in the left groin as well as absent pulses of the left ankle. The next day she was taken to the operative Suite where aortogram showed the distal left external iliac artery to be occluded. There was significant disease of the left common femoral artery and proximal left superficial femoral artery. She underwent atherectomy of the proximal left superficial femoral artery and common femoral artery with stenting of the left external iliac artery occlusion and proximal left common femoral artery . Rest pain left leg resolved . There is mild disease of the left distal SFA as well as complete occlusion of all trifurcation vessels below their takeoff with reconstitution of the left anterior tibial and peroneal arteries . There is significant collateral flow around the takeoff of all the trifurcation vessesl. She will be discharged today on her usual medications including Xarelto 2.5 mg BID and aspirin 81 mg daily . Ambulation is encouraged. She will follow up with me in one week. Repeat Doppler studies and ankle brachial indices will determine if additional intervention of the left leg is necessary . Patient Disposition: 01 HOME, SELF-CARE Condition: Stable Health Concerns: Post Hospitalization: new medications and changes needed to prevent readmission or further decline. Pt educated and given instructions on all concerns. Care Plan Goals: Problem: Pain/Alteration in Comfort Goal: Improve/ Resolve Pain; Achieve Pain Tolerance Instructions: Take pain medications as prescribed. Contact your primary care provider if your pain is unrelieved or worsens. Follow up with primary care provider as directed. Plan of Treatment: Continue with present treatment and follow up plan. Pt is to keep follow up appointment as instructed and take medications as ordered. Assessment: see hospital course Prescriptions: Continued megestrol 400 mg/10 mL (40 mg/mL) suspension 40 mg PO DAILY fluticasone propionate 50 mcg/actuation spray,suspension 100 mcg INTRANASAL DAILY Patient Comments: [NO ORIGINAL SIG] Rx Instructions: Inhale 2 sprays each Nostril daily lisinopril 20 mg tablet 20 mg PO BID Patient Comments: Take ONE (1) Tablet by mouth TWO (2) Times Each Day 90-DAY SUPPLY hydrocodone-acetaminophen 10-325 mg tablet 1 tab PO Q6HR PRN (Reason: Pain) Patient Comments: Take ONE (1) Tablet by mouth THREE (3) or FOUR (4) Times Each Day only as needed 30-DAY SUPPLY simvastatin 20 mg tablet 20 mg PO QHS Patient Comments: Take ONE (1) Tablet by mouth ONE (1) Time Each Day in the EVENING 90-DAY SUPPLY Premarin 0.625 mg tablet 0.625 mg PO DAILY Patient Comments: Take ONE (1) Tablet by mouth ONE (1) Time Each Day 90-DAY SUPPLY ipratropium-albuterol 0.5 mg-3 mg(2.5 mg base)/3 mL Solution For Nebulization 3 ml INHALATION QID PRN aspirin 81 mg Tablet,Delayed Release (Dr/Ec) 81 mg PO DAILY amlodipine 10 mg Tablet 10 mg PO ONCE triamcinolone acetonide 0.1 % Ointment 1 applic TOPICAL BID PRN cholecalciferol (vitamin D3) [Vitamin D3] 10 mcg (400 unit) Tablet 10 mcg PO ONCE vitamin E 400 unit Capsule 400 unit PO DAILY budesonide-formoterol [Symbicort] 160-4.5 mcg/actuation Hfa Aerosol Inhaler 2 puff INHALATION BID PRN Spiriva Respimat 2.5 mcg/actuation Mist 2 puff INHALATION QAM cyclobenzaprine 10 mg Tablet 10 mg PO TID PRN cyclobenzaprine 10 mg Tablet 10 mg PO TID PRN Xarelto 2.5 mg tablet 2.5 mg PO BID furosemide [Lasix] 20 mg Tablet 20 mg PO QDAY Follow ups/Referrals Follow ups/Referrals: Mark Tian [STAFF PHYSICIAN] - 04/03/23 1:30 pm Instructions Instructions: Endovascular Therapy for Peripheral Vascular Disease, Care After Stand Alone Forms: Excuse From Work or School, Post Hospital Follow Up Care
[2023-03-30 16:06] VITALS: BP 128/59; PULSE 47; RESP 16; TEMP 97.8; O2SAT 100
[2023-03-30] MEDS ORDERED: XARELTO PO SCH (21:00)
[2023-03-31] MEDS ORDERED: ASPIRIN 81 MG CHEWTAB PO SCH (09:00)
--- NOTE | 2023-03-31 20:59 | DR.OPNOTE ---
OP NOTE Pre-Op Diagnosis: Critical ischemia left leg Post-Op Diagnosis: same Procedure Date Date Of Procedure: 03/30/23 Procedure: PROCEDURE : The patient was taken to the operative suite and placed in the Supine position. The right groin and entire left leg were prepped and draped in sterile fashion. Time out for the procedure obtained . Patient given intravenous sedation supervised by myself. Ultrasound used to identify the right femoral artery and the skin overlying it infiltrated with 0.5% Marcaine . Ultrasound used to guide puncture of the right femoral artery and a 0.012 inch guidw wire placed. Incision made over the guide wire at the skin edge and a micro sheath placed over the guide wire into the right femoral artery. The small guidewire exchanged for a 0.035 inch Advantage glide wire and the micro sheath exchanged for a 5 [place] vascular sheath . Omni catheter placed over the guide wire into the aorta and diagnostic aortogram carried out infrarenal aortic aneurysm less than 5 cm in diameter and also showing the left external iliac artery to be completely occluded as was the common femoral artery and the take-off of the left superficial femoral artery. Omni catheter used to steer the guide wire down the left common iliac artery and I attempted but could not get across the occlusion. Ultrasound then used to identify the distal superficial femoral artery in the left groin and the skin overlying it infiltrated with 0.5% Marcaine . Microsheath placed over the guide wire into the left superficial femoral artery and a 0.012 inch guide wire placed. Incision made over the guide wire at the skin edge with a number 11 knife blade and then micro sheath placed over this wire. Small guide wire removed and exchanged for a 0.035 inch advantage glidewire and the microsheath exchanged for a 6 Fr vascular sheath . 0.035 inch wire was used to cross the occlusion from below into the aorta and this confirmed with aortogram . [place] catheter placed over the 0.035 inch wire into the aorta and the 0.035 inch wire exchanged for a 0.014 inch wire. The Jet stream atherectomy device placed over the 0.014 inch wire and ahterectomy performed of the left proximal superficial femoral artery , the common femoral artery as well as the external iliac artery. The Jet stream device removed and then we balloon dilated the left external iliac artery occlusion with a 7 mm a 80 mm [employer] Elluvia drug-coated stent. Repeat arteriogram from above showed excellent flow into the left ilaic artery and the left common femoral artery.Arteriogram carried out through the left- sided sheath showing a small area of approximately 50% stenosis of the distal left superficail femoral artery . Left popliteal artery was normal. All of the proximal trifurcation vessels were occluded proximally with reconstitution of the anterior tibial and peroneal arteries with flow to the ankle . There was significant collateral flow around the proximal trifurcation artery occlusions We elected to stop at this time . If the patient is still having problems post procedure will try open up the distal run off. Patient taken back to the ICU in good condition. Patient required no Protamine. Angioseal device placed over the guide wire on the right side used to close the arterial puncture. Direct pressure held over the left puncture site for 10 minutes. Type of Anesthesia: Local (0.5% Marcaine) Anesthesia Comment: plus MAC Findings: complete occlusion left external iliac artery, left common femoral artery and proximal left superficial femoral artery. Type of Fluids Used:: Lactated Ringers Total Amount of Fluid Infused:: 600 chcf Urine output: 900 cc EBL: 150 cc Hardware: Amy 7 mmx 80 mm drug coated stent placed left external iliac artery and left proxinmal common femoral artery Complications:: none Needle/Sponge Count:: correct Disposition/Condition: Pt. tolerated procedure without difficulty. Patietn raken back to the CCU in stable condition.
== END 2023-03-30 13:05 | disposition home or self-care (01) | DRG 271 ==
LOC: ICU 16:02
PROVIDERS: ADMIT Surgery; ATTEND Surgery